=== PATIENT | male | born 1945 | race Caucasian/White ===

== ENCOUNTER 2024-05-04 12:02 | Emergency (ER) | payer MEDICARE, OTHER ==
[~2024-05-04] VITALS: Ht 170.2 cm; Wt 61.2 kg
[2024-05-04 15:01] VITALS: BP 130/69; TEMP 97.9; O2SAT 93
== END 2024-05-04 15:07 | disposition home or self-care (01) ==
LOC: ER 12:12
DX: S42.201A Unspecified fracture of upper end of right humerus, initial encounter for closed fracture (principal); Z59.00 Homelessness unspecified; W01.0XXA Fall on same level from slipping, tripping and stumbling without subsequent striking against object, initial encounter; Y93.89 Activity, other specified; Y92.89 Other specified places as the place of occurrence of the external cause; Y99.8 Other external cause status
CPT/HCPCS: 73030-TC; 73060-TC

== ENCOUNTER 2024-05-06 14:17 | Emergency (ER) | payer OTHER ==
[~2024-05-06] VITALS: Ht 170.2 cm; Wt 61.2 kg
[2024-05-06] MEDS ORDERED: HYDROCODONE/APAP 10/325MG TABLET ONE (14:54)
[2024-05-06] MEDS: HYDROCODONE/APAP 10/325MG TABLET PO ONE (14:57)
[2024-05-06 18:42] VITALS: BP 128/62; TEMP 98.1; O2SAT 97
== END 2024-05-06 18:42 ==
LOC: ER 14:20
DX: S42.201A Unspecified fracture of upper end of right humerus, initial encounter for closed fracture (principal); S50.11XA Contusion of right forearm, initial encounter; R10.2 Pelvic and perineal pain; Z59.00 Homelessness unspecified; Z86.79 Personal history of other diseases of the circulatory system; Z87.39 Personal history of other diseases of the musculoskeletal system and connective tissue; W01.0XXA Fall on same level from slipping, tripping and stumbling without subsequent striking against object, initial encounter; Y93.89 Activity, other specified; Y92.89 Other specified places as the place of occurrence of the external cause; Y99.8 Other external cause status
CPT/HCPCS: 72192-TC

== ENCOUNTER 2024-10-03 18:02 | Inpatient (IN) | payer MEDICARE, OTHER ==
[~2024-10-03] VITALS: Ht 170.2 cm; Wt 46.3 kg
[2024-10-03 18:56] LABS: BASOPHILS % (AUTO) 0.4 % (0.0-2.0); EOSINOPHILS % (AUTO) 0.4 % (0.0-6.0); HEMATOCRIT 27 % (39-51); HEMOGLOBIN 8.9 g/dL (13.5-17.5); LYMPHOCYTES # (AUTO) 1.1 K/uL (0.8-4.8); LYMPHOCYTES % (AUTO) 12.5 % (20.0-44.0); MEAN CORPUSCULAR HEMOGLOBIN 26 PG (26.0-33.0); MEAN CORPUSCULAR HGB CONC 33 g/dl (31.0-36.0); MEAN CORPUSCULAR VOLUME 79 fL (80-96); MONOCYTES # (AUTO) 0.7 K/uL (0.1-1.30); MONOCYTES % (AUTO) 7.8 % (2.0-12.0); NEUTROPHILS % (AUTO) 78.9 % (43.0-81.0); PLATELET COUNT (AUTO) 536 K/uL (150-450); RED BLOOD CELL COUNT(AUTO) 3.42 MIL/uL (4.5-6.0); RED CELL DISTRIBUTION WIDTH 19.3 % (11.5-15.0); WHITE BLOOD COUNT (AUTO) 8.8 K/uL (4.3-11.0)
[2024-10-03 19:01] VITALS: O2SAT 100
[2024-10-03] MEDS: ALBUTEROL FS 2.5 MG/3 ML VIAL.NEB NEB ONE (19:01)
[2024-10-03 19:09] LABS: INR 1.14 (0.91-1.10); PARTIAL THROMBOPLASTIN TIME 28.1 SEC (24.3-34.3); PROTHROMBIN TIME 11.6 SECS (9.2-11.1)
[2024-10-03 19:10] LABS: CALCIUM, SERUM 8.9 mg/dL (8.5-10.1); CARBON DIOXIDE 23 mmol/L (21-32); CHLORIDE 100 mmol/L (98-107); GLUCOSE 94 mg/dL (74-106); POTASSIUM 3.6 mmol/L (3.5-5.1); SODIUM SERUM 134 mmol/L (136-145); UREA NITROGEN, BLOOD 16 mg/dL (7-18)
[2024-10-03] MEDS ORDERED: ALBUTEROL FS 2.5 MG/3 ML VIAL.NEB ONE (19:10)
[2024-10-03 19:16] VITALS: O2SAT 100
[2024-10-03 19:24] LABS: ALANINE AMINOTRANSFERASE 17 U/L (12-78); ALBUMIN 2.7 g/dL (3.4-5.0); ALKALINE PHOSPHATASE 108 U/L (46-116); ASPARTATE AMINOTRANSFERASE 23 U/L (15-37); BILIRUBIN,DIRECT 0.3 mg/dL (0.0-0.2); BILIRUBIN,TOTAL 0.8 mg/dL (0.2-1.0); NT-PRO BNP 1713 pg/mL (0-125); TOTAL PROTEIN, SERUM 8.6 g/dL (6.4-8.2)
[2024-10-03] MEDS ORDERED: FUROSEMIDE 40 MG/4 ML VIAL ONE (20:05)
[2024-10-03] MEDS ORDERED: MORPHINE SULFATE INJ 2 MG/ML DISP.SYRIN ONE (20:06)
[2024-10-03] MEDS ORDERED: IOHEXOL-350 100 ML VIAL IV ONE (20:09)
[2024-10-03] MEDS ORDERED: IV NS 0.9% 250 ML IV ONE (20:09)
[2024-10-03] MEDS: FUROSEMIDE 40 MG/4 ML VIAL IV ONE (20:10)
[2024-10-03] MEDS: MORPHINE SULFATE INJ 2 MG/ML DISP.SYRIN IV ONE (20:11)
[2024-10-03] MEDS ORDERED: ENOXAPARIN SODIUM 40 MG/0.4 ML DISP.SYRIN SQ ONE (20:51)
[2024-10-03] MEDS: ENOXAPARIN SODIUM 40 MG/0.4 ML DISP.SYRIN SQ ONE (20:55)
[2024-10-03] MEDS ORDERED: ENOXAPARIN SODIUM 30 MG/0.3 ML DISP.SYRIN ONE (21:38)
[2024-10-03] MEDS: ENOXAPARIN SODIUM 40 MG/0.4 ML DISP.SYRIN SQ STA (21:43)
[2024-10-03] MEDS ORDERED: ASPIRIN 325 MG TABLET ONE (21:44)
[2024-10-03] MEDS: ASPIRIN 81 MG TAB.CHEW PO SCH (21:46)
[2024-10-03 22:25] VITALS: BP 139/62; TEMP 98.4; O2SAT 98
[2024-10-03] MEDS ORDERED: ONDANSETRON HCL/PF 4 MG/2 ML VIAL IVP PRN (22:30)
[2024-10-03] MEDS ORDERED: Z GUARD REMEDY 4 OZ OINT TP PRN (22:30)
[2024-10-03] MEDS ORDERED: MAGNESIUM HYDROXIDE 30 ML UDC PO PRN (22:30)
[2024-10-04] MEDS: ZOLPIDEM TARTRATE 5 MG TABLET PO PRN (01:13)
[2024-10-04 06:00] VITALS: BP 139/81; TEMP 98.4; O2SAT 98
[2024-10-04 06:54] LABS: BASOPHILS % (AUTO) 0.5 % (0.0-2.0); EOSINOPHILS # (AUTO) 0.1 K/uL (0.0-0.7); EOSINOPHILS % (AUTO) 0.8 % (0.0-6.0); HEMATOCRIT 26 % (39-51); HEMOGLOBIN 8.6 g/dL (13.5-17.5); LYMPHOCYTES % (AUTO) 12.3 % (20.0-44.0); MEAN CORPUSCULAR HEMOGLOBIN 26 PG (26.0-33.0); MEAN CORPUSCULAR HGB CONC 34 g/dl (31.0-36.0); MEAN CORPUSCULAR VOLUME 79 fL (80-96); MONOCYTES # (AUTO) 0.8 K/uL (0.1-1.30); MONOCYTES % (AUTO) 9.3 % (2.0-12.0); NEUTROPHILS # (AUTO) 6.3 K/uL (1.8-8.9); NEUTROPHILS % (AUTO) 77.1 % (43.0-81.0); PLATELET COUNT (AUTO) 526 K/uL (150-450); RED BLOOD CELL COUNT(AUTO) 3.29 MIL/uL (4.5-6.0); RED CELL DISTRIBUTION WIDTH 19.4 % (11.5-15.0); WHITE BLOOD COUNT (AUTO) 8.2 K/uL (4.3-11.0)
[2024-10-04 07:15] LABS: THYROID STIMULATING HORMONE 2.58 uIU/mL (0.358-3.74)
[2024-10-04 07:19] LABS: CALCIUM, SERUM 8.8 mg/dL (8.5-10.1); CREATININE 1.1 mg/dL (0.6-1.3); MAGNESIUM 2.1 mg/dL (1.8-2.4); PHOSPHORUS 4.2 mg/dL (2.5-4.9); POTASSIUM 3.7 mmol/L (3.5-5.1)
[2024-10-04] MEDS: PANTOPRAZOLE 40 MG TABLET.DR PO SCH (07:48)
[2024-10-04 08:28] VITALS: BP 106/78; TEMP 98.1; O2SAT 100
[2024-10-04 08:41] LABS: IRON, SERUM 25 ug/dl (50-175); TOTAL IRON BINDING CAPACITY 210 ug/dl (250-450)
[2024-10-04 08:59] LABS: FERRITIN 189 ng/mL (8-388)
[2024-10-04] MEDS ORDERED: ALBUTEROL HALF STRENGTH 1.25 MG/3 ML VIAL.NEB NEB PRN (11:30)
[2024-10-04 20:00] VITALS: BP 141/67; TEMP 97.2; O2SAT 100
[2024-10-04] MEDS ORDERED: ENOXAPARIN SODIUM 60 MG/0.6 ML DISP.SYRIN SQ SCH (21:00)
[2024-10-04] MEDS: ACETAMINOPHEN 325 MG TABLET PO PRN (21:01)
[2024-10-04] MEDS: ENOXAPARIN SODIUM 30 MG/0.3 ML DISP.SYRIN SQ SCH (22:12)
[2024-10-05 06:52] LABS: BASOPHILS % (AUTO) 0.5 % (0.0-2.0); EOSINOPHILS # (AUTO) 0.1 K/uL (0.0-0.7); EOSINOPHILS % (AUTO) 1.2 % (0.0-6.0); HEMATOCRIT 27 % (39-51); HEMOGLOBIN 8.8 g/dL (13.5-17.5); LYMPHOCYTES # (AUTO) 1.4 K/uL (0.8-4.8); LYMPHOCYTES % (AUTO) 12.9 % (20.0-44.0); MEAN CORPUSCULAR HEMOGLOBIN 26 PG (26.0-33.0); MEAN CORPUSCULAR HGB CONC 33 g/dl (31.0-36.0); MEAN CORPUSCULAR VOLUME 79 fL (80-96); MONOCYTES % (AUTO) 9.2 % (2.0-12.0); NEUTROPHILS # (AUTO) 8.1 K/uL (1.8-8.9); NEUTROPHILS % (AUTO) 76.2 % (43.0-81.0); PLATELET COUNT (AUTO) 529 K/uL (150-450); RED BLOOD CELL COUNT(AUTO) 3.36 MIL/uL (4.5-6.0); RED CELL DISTRIBUTION WIDTH 20.4 % (11.5-15.0); WHITE BLOOD COUNT (AUTO) 10.6 K/uL (4.3-11.0)
[2024-10-05 06:58] LABS: CALCIUM, SERUM 9.3 mg/dL (8.5-10.1); CREATININE 1.1 mg/dL (0.6-1.3); POTASSIUM 3.2 mmol/L (3.5-5.1)
[2024-10-05 07:00] VITALS: BP 105/71; TEMP 97.9; O2SAT 100
[2024-10-05] MEDS: POTASSIUM CHLORIDE 20 MEQ TAB.PRT.SR PO SCH (09:31)
[2024-10-05] MEDS ORDERED: ALBU18HF2 INH (12:00)
[2024-10-05 14:10] LABS: *SPE A/G RATIO 0.6 (0.7-1.7); *SPE ALBUMIN 2.6 g/dL (2.9-4.4); *SPE ALPHA-1-GLOBULIN 0.4 g/dL (0.0-0.4); *SPE ALPHA-2-GLOBULIN 0.9 g/dL (0.4-1.0); *SPE BETA GLOBULIN 1.3 g/dL (0.7-1.3); *SPE GLOBULIN, TOTAL 4.4 g/dL (2.2-3.9); *SPE M-SPIKE Not Observed g/dL (Not Observed); *SPEGAMMA GLOBULIN 1.7 g/dL (0.4-1.8)
[2024-10-05 16:00] VITALS: BP_SYST 105; BP_SYST 162; BP_DIAS 71; BP_DIAS 92; TEMP 97.3; TEMP 98.2; O2SAT 100
[2024-10-05] MEDS: MAG HYDROX/AL HYDROX/SIMETH 30 ML UDC PO PRN (16:08)
[2024-10-05 20:00] VITALS: BP 119/88; TEMP 97.7; O2SAT 98
[2024-10-06 06:46] LABS: CALCIUM, SERUM 8.6 mg/dL (8.5-10.1); CREATININE 0.9 mg/dL (0.6-1.3); POTASSIUM 3.9 mmol/L (3.5-5.1)
[2024-10-06 08:31] VITALS: BP 120/78; TEMP 97.6; O2SAT 100
[2024-10-06] MEDS ORDERED: MUPIROCIN OINT 2% 22 GM TUBE NS SCH (21:00)
== END 2024-10-06 17:26 | DRG 202 ==
LOC: ER 18:04 → TELE 20:48 → MED 10-04 21:16
PROVIDERS: ADMIT Student in an Organized Health Care Education/Training Program; ATTEND Student in an Organized Health Care Education/Training Program
DX: J20.8 Acute bronchitis due to other specified organisms (principal); E44.0 Moderate protein-calorie malnutrition; J44.0 Chronic obstructive pulmonary disease with (acute) lower respiratory infection; L97.821 Non-pressure chronic ulcer of other part of left lower leg limited to breakdown of skin; S21.102A Unspecified open wound of left front wall of thorax without penetration into thoracic cavity, initial encounter; I25.2 Old myocardial infarction; Z87.891 Personal history of nicotine dependence; D64.9 Anemia, unspecified; I25.10 Atherosclerotic heart disease of native coronary artery without angina pectoris; Z99.81 Dependence on supplemental oxygen; Z87.820 Personal history of traumatic brain injury; S61.402A Unspecified open wound of left hand, initial encounter; X58.XXXA Exposure to other specified factors, initial encounter; Y92.89 Other specified places as the place of occurrence of the external cause; R79.1 Abnormal coagulation profile; Z98.890 Other specified postprocedural states; Z87.828 Personal history of other (healed) physical injury and trauma; R06.00 Dyspnea, unspecified
CPT/HCPCS: 36415; 71045-TC; 80048-TC; 80061-TC; 80076-TC; 82728-TC; 83540-TC; 83735-TC; 83880; 84100-TC; 84155; 84165; 84443-TC; 84484-TC; 85025-TC; 85378-TC; 85730-TC; 87081-TC; 93307-TC; 97110-TC; 97116-TC; 97530-TC; 97535-TC; A6253; A6403; G0378; J1650; J1938; J2270; J7050; Q9967

== ENCOUNTER 2024-10-29 10:46 | Inpatient (IN) | payer MEDICARE, OTHER ==
[~2024-10-29] VITALS: Ht 170.2 cm; Wt 56.2 kg
[2024-10-29] MEDS: IV NS 0.9% 1,000 ML BAG IV ONE ×2 (11:10→13:40)
[2024-10-29 11:18] LABS: PLATELET COUNT (AUTO) 355 K/uL (150-450); RED BLOOD CELL COUNT(AUTO) 2.71 MIL/uL (4.5-6.0); RED CELL DISTRIBUTION WIDTH 20.0 % (11.5-15.0); WHITE BLOOD COUNT (AUTO) 15.3 K/uL (4.3-11.0)
[2024-10-29 11:25] LABS: CALCIUM, SERUM 8.5 mg/dL (8.5-10.1); CREATININE 0.8 mg/dL (0.6-1.3); SODIUM SERUM 128.0 mmol/L (136-145); UREA NITROGEN, BLOOD 26.0 mg/dL (7-18)
[2024-10-29] MEDS ORDERED: MAGN400O6 PO (11:26)
[2024-10-29] MEDS ORDERED: MULT-213 PO (11:26)
[2024-10-29] MEDS ORDERED: MELA1TAB47 PO (11:26)
[2024-10-29] MEDS ORDERED: NA P133E RC (11:26)
[2024-10-29] MEDS ORDERED: HYDR-4209 PO (11:26)
[2024-10-29] MEDS ORDERED: CRAN500T3 PO (11:26)
[2024-10-29] MEDS ORDERED: MAG30ORA PO (11:26)
[2024-10-29] MEDS ORDERED: ACET-868 PO (11:26)
[2024-10-29] MEDS ORDERED: LOPE2TAB25 PO (11:26)
[2024-10-29] MEDS ORDERED: BISA10SU11 RC (11:26)
[2024-10-29] MEDS ORDERED: PANT40TA2 PO (11:26)
[2024-10-29] MEDS ORDERED: ZOLP5TAB2 PO (11:26)
[2024-10-29] MEDS ORDERED: ALBU1.257 IH (11:26)
[2024-10-29] MEDS ORDERED: IOHEXOL-300 100 ML VIAL IV ONE (11:30)
[2024-10-29 11:31] LABS: ASPARTATE AMINOTRANSFERASE 70.0 U/L (15-37); INR 1.4 (0.91-1.10); TOTAL PROTEIN, SERUM 6.9 g/dL (6.4-8.2)
[2024-10-29 11:38] LABS: LACTIC ACID 1.2 mmol/L (0.4-2.0)
[2024-10-29 11:55] LABS: SERUM AMMONIA 13.0 umol/L (11-32)
[2024-10-29] MEDS ORDERED: PIPERACI/TAZO 3.375GM/D5W 50ML PB IV ONE ×2 (11:56→11:58)
[2024-10-29] MEDS: PIPERACILLIN /TAZOBACTAM 3.375 G in IV D5W 50 ML IV ONE (12:00)
[2024-10-29 12:09] LABS: LYMPHOCYTES % (MANUAL) 6 % (16-48); MONOCYTES % (MANUAL) 3 % (0-11.0); NEUTROPHILS % (MANUAL) 91 (42-76); PLATELET ESTIMATE ADEQUATE
[2024-10-29] MEDS ORDERED: ACETAMINOPHEN 325 MG TABLET ONE ×2 (14:24→14:28)
[2024-10-29] MEDS ORDERED: DOSING PER PHARMACY-ZOSYN IV 1 EA EA XX PRN (14:30)
[2024-10-29] MEDS ORDERED: Z GUARD REMEDY 4 OZ OINT TP PRN (14:30)
[2024-10-29] MEDS: ACETAMINOPHEN 325 MG TABLET PO PRN (14:59)
[2024-10-29 15:20] LABS: APPEARANCE,URINE CLEAR (CLEAR); BLOOD, URINE NEGATIVE Ery/uL (NEGATIVE); LEUKOCYTE ESTERASE ,URINE NEGATIVE (NEGATIVE); NITRITE, URINE NEGATIVE (NEGATIVE); UGLUCOSE TRACE mg/dL (NEGATIVE)
[2024-10-29 15:32] LABS: ADD URINE CULTURE NO; SQUAMOUS EPITHELIAL CELL,UR 0-2 /HPF (None Seen)
[2024-10-29 15:34] LABS: HYALINE CASTS, URINE Rare /LPF (None Seen)
[2024-10-29 16:00] VITALS: BP 92/54; TEMP 97.6; O2SAT 99
[2024-10-29 16:47] VITALS: BP 92/54; TEMP 97.6; O2SAT 97
[2024-10-29] MEDS: IV NS 0.9% 1,000 ML IV PRN (17:42)
[2024-10-29] MEDS: ZOSYN IVPB 3.375 G in IV D5W 50ml IV SCH (18:24)
[2024-10-29 20:00] VITALS: BP 111/87; TEMP 97.7; O2SAT 96
[2024-10-29] MEDS: MAG HYDROX/AL HYDROX/SIMETH 30 ML UDC PO PRN (22:13)
[2024-10-30] VITALS (7 sets, daily range): BP systolic 92–112; BP diastolic 54–66; TEMP 97.7–98.6; O2SAT 96–100
[2024-10-30 07:40] LABS: CALCIUM, SERUM 8.6 mg/dL (8.5-10.1); CREATININE 0.7 mg/dL (0.6-1.3); PHOSPHORUS 3.7 mg/dL (2.5-4.9); SODIUM SERUM 134.0 mmol/L (136-145); UREA NITROGEN, BLOOD 20.0 mg/dL (7-18)
[2024-10-30 09:20] LABS: PLATELET COUNT (AUTO) 364 K/uL (150-450); RED BLOOD CELL COUNT(AUTO) 2.62 MIL/uL (4.5-6.0); RED CELL DISTRIBUTION WIDTH 19.9 % (11.5-15.0); WHITE BLOOD COUNT (AUTO) 17.6 K/uL (4.3-11.0)
[2024-10-30 12:25] LABS: IRON, SERUM 2 ug/dl (50-175)
[2024-10-30 14:47] LABS: LYMPHOCYTES % (MANUAL) 1 % (16-48); MONOCYTES % (MANUAL) 5 % (0-11.0); NEUTROPHILS % (MANUAL) 94 (42-76); PLATELET ESTIMATE ADEQUATE
[2024-10-30] MEDS: PIPERACILLIN /TAZOBACTAM 3.375 G in IV D5W 100 ML IV SCH (16:12)
[2024-10-30] MEDS: ENSURE ENLIVE 237 ML LIQUID (VANILLA) PO SCH (19:00)
[2024-10-31 04:00] VITALS: BP 100/67; TEMP 98.2; O2SAT 100
[2024-10-31 06:36] LABS: INR 1.35 (0.91-1.10)
[2024-10-31 06:38] LABS: PLATELET COUNT (AUTO) 343 K/uL (150-450); RED BLOOD CELL COUNT(AUTO) 3.08 MIL/uL (4.5-6.0); RED CELL DISTRIBUTION WIDTH 18.5 % (11.5-15.0); WHITE BLOOD COUNT (AUTO) 17.8 K/uL (4.3-11.0)
[2024-10-31 07:19] LABS: CALCIUM, SERUM 8.5 mg/dL (8.5-10.1); CREATININE 0.6 mg/dL (0.6-1.3); SODIUM SERUM 133.0 mmol/L (136-145); UREA NITROGEN, BLOOD 17.0 mg/dL (7-18)
[2024-10-31 08:00] VITALS: BP 115/63; TEMP 98.1; O2SAT 99
[2024-10-31 11:23] VITALS: BP 135/68; TEMP 98; O2SAT 95
[2024-10-31] MEDS: POTASSIUM CL. PREMIX PERIPHER. 50 ML IV SCH (11:25)
[2024-10-31] MEDS: MORPHINE SULFATE INJ 2 MG/ML DISP.SYRIN IV PRN (11:25)
[2024-10-31] MEDS ORDERED: NALOXONE PREFILLED SYRINGE 2 MG/2 ML SYRINGE IV PRN (12:00)
[2024-10-31] MEDS ORDERED: FLUMAZENIL 0.5 MG VIAL IV PRN (12:00)
[2024-10-31] MEDS ORDERED: FENTANYL PF 250MCG/5ML AMPUL IV PRN (12:00)
[2024-10-31] MEDS ORDERED: MIDAZOLAM HCL 2 MG/2ML VIAL IV PRN (12:00)
[2024-10-31 16:00] VITALS: BP 119/65; TEMP 97.9; O2SAT 89
[2024-10-31] MEDS: SOD FERRIC GLUC 125 MG in IV NS 0.9% 100 ML IV SCH (16:07)
[2024-10-31 17:11] VITALS: BP 110/65; O2SAT 96
[2024-10-31 20:00] VITALS: BP 116/70; TEMP 99; O2SAT 97
[2024-10-31] MEDS: MUPIROCIN OINT 2% 22 GM TUBE NS SCH (21:30)
[2024-11-01 04:00] VITALS: BP 99/54; TEMP 98.8; O2SAT 98
[2024-11-01 04:07] LABS: IMMUNOGLOBULIN A, SERUM 851 mg/dL (61-437); IMMUNOGLOBULIN M, SERUM 125 mg/dL (15-143)
[2024-11-01 07:04] LABS: PLATELET COUNT (AUTO) 318 K/uL (150-450); RED BLOOD CELL COUNT(AUTO) 2.88 MIL/uL (4.5-6.0); RED CELL DISTRIBUTION WIDTH 18.2 % (11.5-15.0); WHITE BLOOD COUNT (AUTO) 12.6 K/uL (4.3-11.0)
[2024-11-01 07:07] LABS: AFP, TUMOR MARKER <1.8 ng/mL (0.0-8.4); CARBOHYDRATE AG 19-9 2767 U/mL (0-35); CARCINOEMBRYONIC ANTIGEN (CEA) 108.0 ng/mL (0.0-4.7); FOLIC ACID 2.8 ng/mL (>3.0)
[2024-11-01 07:47] LABS: CALCIUM, SERUM 8.3 mg/dL (8.5-10.1); CREATININE 0.6 mg/dL (0.6-1.3); SODIUM SERUM 135.0 mmol/L (136-145); UREA NITROGEN, BLOOD 16.0 mg/dL (7-18)
[2024-11-01 08:00] VITALS: BP 98/60; TEMP 98.1; O2SAT 98
[2024-11-01] MEDS ORDERED: IV NS 0.9% 250 ML IV ONE (09:29)
[2024-11-01] MEDS ORDERED: CT SWABBABLE VALVE TRANS SET 1 EA INFUS.SET MC ONE (09:29)
[2024-11-01] MEDS ORDERED: IOHEXOL-300 100 ML VIAL IV ONE (09:29)
[2024-11-01 16:00] VITALS: BP 101/65; TEMP 98; O2SAT 99
[2024-11-01] MEDS: POTASSIUM CHLORIDE 20 MEQ TAB.PRT.SR PO ONE (18:42)
[2024-11-01 20:00] VITALS: BP 113/70; TEMP 98.2; O2SAT 96
[2024-11-02 04:00] VITALS: BP 101/56; TEMP 98.4; O2SAT 98
[2024-11-02 06:40] LABS: PLATELET COUNT (AUTO) 322 K/uL (150-450); RED BLOOD CELL COUNT(AUTO) 2.87 MIL/uL (4.5-6.0); RED CELL DISTRIBUTION WIDTH 17.8 % (11.5-15.0); WHITE BLOOD COUNT (AUTO) 14.7 K/uL (4.3-11.0)
[2024-11-02 06:47] LABS: CALCIUM, SERUM 8.1 mg/dL (8.5-10.1)
[2024-11-02 06:52] LABS: CREATININE 0.6 mg/dL (0.6-1.3); SODIUM SERUM 137.0 mmol/L (136-145); UREA NITROGEN, BLOOD 12.0 mg/dL (7-18)
[2024-11-02 06:53] LABS: ASPARTATE AMINOTRANSFERASE 50.0 U/L (15-37); TOTAL PROTEIN, SERUM 6.3 g/dL (6.4-8.2)
[2024-11-02 07:10] LABS: *SPE A/G RATIO 0.5 (0.7-1.7); *SPE ALBUMIN 1.8 g/dL (2.9-4.4); *SPE ALPHA-1-GLOBULIN 0.4 g/dL (0.0-0.4); *SPE ALPHA-2-GLOBULIN 0.9 g/dL (0.4-1.0); *SPE BETA GLOBULIN 1.0 g/dL (0.7-1.3); *SPE GLOBULIN, TOTAL 3.6 g/dL (2.2-3.9); *SPE M-SPIKE 0.2 g/dL (Not Observed); *SPE PROTEIN TOTAL 5.4 g/dL (6.0-8.5); *SPEGAMMA GLOBULIN 1.4 g/dL (0.4-1.8)
[2024-11-02 08:00] VITALS: BP 97/60; TEMP 100.8; O2SAT 96
[2024-11-02] MEDS: ENSURE CLEAR 237 ML LIQUID (MIX BERRY) PO SCH (08:30)
[2024-11-02] MEDS: ENSURE ENLIVE 237 ML LIQUID (VANILLA) PO SCH (08:38)
[2024-11-02] MEDS: MAGNESIUM HYDROXIDE 30 ML UDC PO PRN (10:15)
[2024-11-02 12:51] VITALS: BP 98/65; TEMP 98; O2SAT 99
[2024-11-02 16:00] VITALS: BP 108/66; TEMP 97.9; O2SAT 99
[2024-11-02] MEDS: FERROUS SULFATE (325 MG) 325 MG/TAB TABLET PO SCH (17:44)
[2024-11-02 20:00] VITALS: BP 123/61; TEMP 97.8; O2SAT 96
[2024-11-03 04:00] VITALS: BP 115/71; TEMP 99.1; O2SAT 97
[2024-11-03 08:00] VITALS: BP 102/60; TEMP 99; O2SAT 96
[2024-11-03 08:10] LABS: PLATELET COUNT (AUTO) 353 K/uL (150-450); RED BLOOD CELL COUNT(AUTO) 2.86 MIL/uL (4.5-6.0); RED CELL DISTRIBUTION WIDTH 17.9 % (11.5-15.0); WHITE BLOOD COUNT (AUTO) 19.2 K/uL (4.3-11.0)
[2024-11-03] MEDS: DEXTROSE 50%-WATER 50 ML DISP.SYRIN IVP ONE ×2 (08:29→08:31)
[2024-11-03 08:56] LABS: ASPARTATE AMINOTRANSFERASE 56.0 U/L (15-37); CALCIUM, SERUM 8.0 mg/dL (8.5-10.1); CREATININE 0.7 mg/dL (0.6-1.3); SODIUM SERUM 137.0 mmol/L (136-145); TOTAL PROTEIN, SERUM 6.4 g/dL (6.4-8.2); UREA NITROGEN, BLOOD 12.0 mg/dL (7-18)
[2024-11-03] MEDS: POTASSIUM CHLORIDE 20 MEQ TAB.PRT.SR PO SCH (09:30)
[2024-11-03] MEDS: IV D5/ 0.9% NACL 1,000 ML IV SCH (10:05)
[2024-11-03] MEDS: POTASSIUM CL. PREMIX PERIPHER. 50 ML IV SCH (11:47)
[2024-11-03 13:02] VITALS: BP 96/60; TEMP 98; O2SAT 99
[2024-11-03] MEDS ORDERED: FENTANYL PF 250MCG/5ML AMPUL IV PRN (13:30)
[2024-11-03] MEDS ORDERED: FLUMAZENIL 0.5 MG VIAL IV PRN (13:30)
[2024-11-03] MEDS ORDERED: NALOXONE PREFILLED SYRINGE 2 MG/2 ML SYRINGE IV PRN (13:30)
[2024-11-03] MEDS ORDERED: MIDAZOLAM HCL 2 MG/2ML VIAL IV PRN (13:30)
[2024-11-03 13:38] LABS: INR 1.69 (0.91-1.10)
[2024-11-03] MEDS ORDERED: FENTANYL PF 250MCG/5ML AMPUL IV ONE (14:53)
[2024-11-03 16:00] VITALS: BP 109/70; TEMP 97.9; O2SAT 100
[2024-11-03 20:00] VITALS: BP 112/70; TEMP 99; O2SAT 94
[2024-11-03 21:09] LABS: BAND % (MANUAL) 1 % (0.0-5.0); LYMPHOCYTES % (MANUAL) 2 % (16-48); MONOCYTES % (MANUAL) 2 % (0-11.0); NEUTROPHILS % (MANUAL) 95 (42-76)
[2024-11-03 21:10] LABS: PLATELET ESTIMATE ADEQUATE
[2024-11-03] MEDS: ONDANSETRON HCL/PF 4 MG/2 ML VIAL IVP PRN (22:17)
[2024-11-04] VITALS (8 sets, daily range): BP systolic 100–123; BP diastolic 60–86; TEMP 97.1–98.8; O2SAT 96–99
[2024-11-04 08:17] LABS: CALCIUM, SERUM 8.3 mg/dL (8.5-10.1); CREATININE 0.7 mg/dL (0.6-1.3); PHOSPHORUS 2.9 mg/dL (2.5-4.9); SODIUM SERUM 135.0 mmol/L (136-145); UREA NITROGEN, BLOOD 14.0 mg/dL (7-18)
[2024-11-04 08:21] LABS: PLATELET COUNT (AUTO) 309 K/uL (150-450); RED BLOOD CELL COUNT(AUTO) 2.46 MIL/uL (4.5-6.0); RED CELL DISTRIBUTION WIDTH 17.8 % (11.5-15.0); WHITE BLOOD COUNT (AUTO) 17.2 K/uL (4.3-11.0)
[2024-11-04 13:25] LABS: LYMPHOCYTES % (MANUAL) 6 % (16-48); MONOCYTES % (MANUAL) 4 % (0-11.0); NEUTROPHILS % (MANUAL) 90 (42-76); PLATELET ESTIMATE ADEQUATE
[2024-11-04] MEDS: TRAMADOL HCL 50 MG TABLET PO PRN (16:00)
[2024-11-05 04:00] VITALS: BP 101/61; TEMP 97.9; O2SAT 96
[2024-11-05 08:00] VITALS: BP 90/64; TEMP 97.7; O2SAT 99
[2024-11-05 09:11] LABS: PLATELET COUNT (AUTO) 297 K/uL (150-450); RED BLOOD CELL COUNT(AUTO) 2.89 MIL/uL (4.5-6.0); RED CELL DISTRIBUTION WIDTH 17.3 % (11.5-15.0); WHITE BLOOD COUNT (AUTO) 16.6 K/uL (4.3-11.0)
[2024-11-05 09:12] LABS: CALCIUM, SERUM 8.3 mg/dL (8.5-10.1); CREATININE 0.7 mg/dL (0.6-1.3); SODIUM SERUM 139.0 mmol/L (136-145); UREA NITROGEN, BLOOD 16.0 mg/dL (7-18)
[2024-11-05 09:18] LABS: ASPARTATE AMINOTRANSFERASE 44.0 U/L (15-37); TOTAL PROTEIN, SERUM 6.4 g/dL (6.4-8.2)
[2024-11-05] MEDS: LIDOCAINE 5% (PATCH) 1 EA PATCH TP SCH (12:53)
[2024-11-05] MEDS: MENTHOL/CETYLPYRD (CEPACOL) 1 LOZ LOZENGE PO PRN (13:16)
[2024-11-05 14:07] LABS: LYMPHOCYTES % (MANUAL) 3 % (16-48); MONOCYTES % (MANUAL) 2 % (0-11.0); NEUTROPHILS % (MANUAL) 95 (42-76); PLATELET ESTIMATE ADEQUATE
[2024-11-05 16:00] VITALS: BP 99/60; TEMP 98; O2SAT 96
[2024-11-05 20:00] VITALS: BP 104/68; TEMP 97.9; O2SAT 97
[2024-11-06 04:00] VITALS: BP 106/71; TEMP 98.1; O2SAT 98
[2024-11-06 07:06] LABS: PLATELET COUNT (AUTO) 338 K/uL (150-450); RED BLOOD CELL COUNT(AUTO) 2.99 MIL/uL (4.5-6.0); RED CELL DISTRIBUTION WIDTH 17.6 % (11.5-15.0); WHITE BLOOD COUNT (AUTO) 18.5 K/uL (4.3-11.0)
[2024-11-06 07:27] LABS: CALCIUM, SERUM 8.3 mg/dL (8.5-10.1); CREATININE 0.6 mg/dL (0.6-1.3); SODIUM SERUM 141.0 mmol/L (136-145); UREA NITROGEN, BLOOD 13.0 mg/dL (7-18)
[2024-11-06 08:00] VITALS: BP 99/67; TEMP 98.1; O2SAT 97
[2024-11-06] MEDS: POTASSIUM CL. PREMIX PERIPHER. 50 ML IV SCH (10:06)
[2024-11-06 16:00] VITALS: BP 108/73; TEMP 98.1; O2SAT 99
[2024-11-06 20:00] VITALS: BP 107/69; TEMP 99.3; O2SAT 98
[2024-11-07] VITALS (10 sets, daily range): BP systolic 93–119; BP diastolic 55–73; TEMP 97.2–99.2; O2SAT 97–99
[2024-11-07 06:43] LABS: PLATELET COUNT (AUTO) 351 K/uL (150-450); RED BLOOD CELL COUNT(AUTO) 2.84 MIL/uL (4.5-6.0); RED CELL DISTRIBUTION WIDTH 17.6 % (11.5-15.0); WHITE BLOOD COUNT (AUTO) 15.6 K/uL (4.3-11.0)
[2024-11-07 07:38] LABS: ASPARTATE AMINOTRANSFERASE 36.0 U/L (15-37); CALCIUM, SERUM 8.2 mg/dL (8.5-10.1); CREATININE 0.6 mg/dL (0.6-1.3); PHOSPHORUS 3.2 mg/dL (2.5-4.9); SODIUM SERUM 141.0 mmol/L (136-145); TOTAL PROTEIN, SERUM 6.9 g/dL (6.4-8.2); UREA NITROGEN, BLOOD 17.0 mg/dL (7-18)
[2024-11-07] MEDS ORDERED: ANESTHESIA TRAY IN PYXIS 1 EA TRAY MC ONE (08:47)
[2024-11-07] MEDS ORDERED: IOHEXOL 0 ML IV ONE (10:00)
[2024-11-07] MEDS ORDERED: INDOMETHACIN 100 MG SUPP.RECT ONE (10:00)
[2024-11-07] MEDS ORDERED: IOHEXOL 50 ML IV ONE (10:01)
[2024-11-07] MEDS: POTASSIUM CL. PREMIX PERIPHER. 50 ML IV SCH (10:31)
[2024-11-07] MEDS ORDERED: ROCURONIUM BROMIDE 50 MG/5 ML ONE (12:27)
[2024-11-07 16:52] LABS: PLATELET COUNT (AUTO) 339 K/uL (150-450); RED BLOOD CELL COUNT(AUTO) 2.71 MIL/uL (4.5-6.0); RED CELL DISTRIBUTION WIDTH 17.6 % (11.5-15.0); WHITE BLOOD COUNT (AUTO) 15.3 K/uL (4.3-11.0)
[2024-11-07] MEDS: METOCLOPRAMIDE HCL 10 MG/2 ML VIAL IV SCH (17:55)
[2024-11-07] MEDS: IV D5/ 0.9% NACL 1,000 ML IV PRN (23:47)
[2024-11-08] VITALS: BP 103/71; TEMP 97.3; O2SAT 100
[2024-11-08 04:00] VITALS: BP 109/69; TEMP 97.5; O2SAT 98
[2024-11-08 06:53] LABS: OCCULT BLOOD STOOL POSITIVE (NEGATIVE)
[2024-11-08 07:03] LABS: CALCIUM, SERUM 8.0 mg/dL (8.5-10.1); CREATININE 0.7 mg/dL (0.6-1.3); SODIUM SERUM 145.0 mmol/L (136-145); UREA NITROGEN, BLOOD 17.0 mg/dL (7-18)
[2024-11-08 07:17] LABS: PLATELET COUNT (AUTO) 300 K/uL (150-450); RED BLOOD CELL COUNT(AUTO) 2.92 MIL/uL (4.5-6.0); RED CELL DISTRIBUTION WIDTH 16.8 % (11.5-15.0); WHITE BLOOD COUNT (AUTO) 11.3 K/uL (4.3-11.0)
[2024-11-08 08:00] VITALS: BP 102/65; TEMP 98.4; O2SAT 100
[2024-11-08] MEDS: POTASSIUM CHLORIDE 20 MEQ TAB.PRT.SR PO SCH (10:11)
[2024-11-08 12:00] VITALS: BP 110/65; TEMP 98.6; O2SAT 100
[2024-11-08 16:00] VITALS: BP 115/65; TEMP 98.7; O2SAT 100
[2024-11-08 20:00] VITALS: BP 102/43; TEMP 98.4; O2SAT 99
[2024-11-09] VITALS: BP 113/71; TEMP 98.1; O2SAT 100
[2024-11-09 04:00] VITALS: BP 120/75; TEMP 98.5; O2SAT 99
[2024-11-09 07:09] LABS: *ALBUMIN U 24 16.0 % (.); *ALPHA-1-GLOBULIN,U 24HR 2.8 % (.); *ALPHA-2-GLOBULIN,U 24HR 13.6 % (.); *BETA GLOBULIN,U 24HR 40.3 % (.); *GAMMA GLOBULIN,U 24HR 27.2 % (.); *M-SPIKE, % UR 24HR 0.0 % (Not Observed); *M-SPIKE,MG/24HR 0.0 mg/24 hr (Not Observed); *PROTEIN,24HR CALCULATED 572 mg/24 hr (30-150); *PROTEIN,TOTAL, URINE 24HR 143.1 mg/dL (Not Estab.)
[2024-11-09 07:35] LABS: ASPARTATE AMINOTRANSFERASE 46 U/L (15-37); CALCIUM, SERUM 7.7 mg/dL (8.5-10.1); CREATININE 0.5 mg/dL (0.6-1.3); SODIUM SERUM 140 mmol/L (136-145); TOTAL PROTEIN, SERUM 6.4 g/dL (6.4-8.2); UREA NITROGEN, BLOOD 14 mg/dL (7-18)
[2024-11-09 07:36] LABS: PLATELET COUNT (AUTO) 293 K/uL (150-450); RED BLOOD CELL COUNT(AUTO) 2.98 MIL/uL (4.5-6.0); RED CELL DISTRIBUTION WIDTH 18.4 % (11.5-15.0); WHITE BLOOD COUNT (AUTO) 11.4 K/uL (4.3-11.0)
[2024-11-09 08:00] VITALS: BP 118/74; TEMP 97.5; O2SAT 100
[2024-11-09 12:00] VITALS: BP 121/81; TEMP 98.1; O2SAT 99
[2024-11-09] MEDS: DEXTROSE 50%-WATER 50 ML DISP.SYRIN IVP ONE (12:08)
[2024-11-09] MEDS: POTASSIUM CHLORIDE 20 MEQ POWDER PACKET PO ONE (15:52)
[2024-11-09 16:00] VITALS: BP 113/97; TEMP 97.5; O2SAT 99
[2024-11-09 20:00] VITALS: BP 114/75; TEMP 98.4; O2SAT 95
[2024-11-10] VITALS (7 sets, daily range): BP systolic 96–134; BP diastolic 52–79; TEMP 97.5–99.7; O2SAT 95–100
[2024-11-10 06:36] LABS: PLATELET COUNT (AUTO) 371 K/uL (150-450); RED BLOOD CELL COUNT(AUTO) 2.72 MIL/uL (4.5-6.0); RED CELL DISTRIBUTION WIDTH 17.2 % (11.5-15.0); WHITE BLOOD COUNT (AUTO) 14.4 K/uL (4.3-11.0)
[2024-11-10 07:18] LABS: ASPARTATE AMINOTRANSFERASE 53.0 U/L (15-37); CALCIUM, SERUM 7.7 mg/dL (8.5-10.1); CREATININE 0.5 mg/dL (0.6-1.3); PHOSPHORUS 3.3 mg/dL (2.5-4.9); TOTAL PROTEIN, SERUM 6.6 g/dL (6.4-8.2); UREA NITROGEN, BLOOD 10.0 mg/dL (7-18)
[2024-11-10 07:36] LABS: SODIUM SERUM 141.0 mmol/L (136-145)
[2024-11-10] MEDS: POTASSIUM CL. PREMIX PERIPHER. 50 ML IV SCH (10:36)
[2024-11-10] MEDS ORDERED: DOSING PER PHARMACY-VANCOMYCIN IV XX PRN (22:00)
[2024-11-10] MEDS ORDERED: LEVOFLOXACIN 500 MG /D5W 100ML 100 ML IV ONE (22:11)
[2024-11-10] MEDS: LEVOFLOXACIN 500 MG /D5W 100ML 500 MG in PREMIX 1 EA IV SCH (22:17)
[2024-11-10] MEDS: VANCOMYCIN 1 GM in IV D5W 250ml IV ONE (22:50)
[2024-11-11] VITALS: BP 116/64; TEMP 98.2; O2SAT 99
[2024-11-11 04:00] VITALS: BP 122/76; TEMP 97.9; O2SAT 98
[2024-11-11] MEDS ORDERED: METRONIDAZOLE 500MG/ NS 100ML 100 ML IV ONE (04:21)
[2024-11-11] MEDS: METRONIDAZOLE 500MG/ NS 100ML 500 MG in PREMIX 1 EA IV SCH (04:25)
[2024-11-11 07:28] LABS: PLATELET COUNT (AUTO) 377 K/uL (150-450); RED BLOOD CELL COUNT(AUTO) 3.03 MIL/uL (4.5-6.0); RED CELL DISTRIBUTION WIDTH 17.8 % (11.5-15.0); WHITE BLOOD COUNT (AUTO) 11.8 K/uL (4.3-11.0)
[2024-11-11 08:00] VITALS: BP 123/80; TEMP 97.3; O2SAT 99
[2024-11-11 08:11] LABS: ASPARTATE AMINOTRANSFERASE 53 U/L (15-37); CALCIUM, SERUM 7.8 mg/dL (8.5-10.1); CREATININE 0.4 mg/dL (0.6-1.3); SODIUM SERUM 135 mmol/L (136-145); TOTAL PROTEIN, SERUM 6.6 g/dL (6.4-8.2); UREA NITROGEN, BLOOD 7 mg/dL (7-18)
[2024-11-11] MEDS: VANCOMYCIN 750 MG in IV D5W 250 ML IV SCH (08:20)
[2024-11-11 12:00] VITALS: BP 120/74; TEMP 97.5; O2SAT 97
[2024-11-11 16:00] VITALS: BP 111/69; TEMP 97.7; O2SAT 97
[2024-11-11 20:00] VITALS: BP 125/70; TEMP 97.7; O2SAT 98
[2024-11-12] VITALS: BP 130/70; TEMP 98; O2SAT 98
[2024-11-12 04:00] VITALS: BP 120/70; TEMP 97.9; O2SAT 99
[2024-11-12 06:26] LABS: PLATELET COUNT (AUTO) 389 K/uL (150-450); RED BLOOD CELL COUNT(AUTO) 3.06 MIL/uL (4.5-6.0); RED CELL DISTRIBUTION WIDTH 17.5 % (11.5-15.0); WHITE BLOOD COUNT (AUTO) 12.8 K/uL (4.3-11.0)
[2024-11-12 06:52] LABS: ASPARTATE AMINOTRANSFERASE 37 U/L (15-37); CALCIUM, SERUM 7.6 mg/dL (8.5-10.1); CREATININE 0.5 mg/dL (0.6-1.3); PHOSPHORUS 2.7 mg/dL (2.5-4.9); SODIUM SERUM 134 mmol/L (136-145); TOTAL PROTEIN, SERUM 6.5 g/dL (6.4-8.2); UREA NITROGEN, BLOOD 6 mg/dL (7-18)
[2024-11-12 08:00] VITALS: BP 122/76; TEMP 98.2; O2SAT 99
[2024-11-12] MEDS: POTASSIUM CL. PREMIX PERIPHER. 50 ML IV SCH (11:16)
[2024-11-12 12:00] VITALS: BP 112/74; TEMP 98.2; O2SAT 99
[2024-11-12 16:00] VITALS: BP 104/83; TEMP 98.1; O2SAT 99
[2024-11-12 20:00] VITALS: BP 134/47; TEMP 98.8; O2SAT 93
[2024-11-13] VITALS: BP 141/49; TEMP 98.6; O2SAT 100
[2024-11-13 04:00] VITALS: BP 140/85; TEMP 98.4; O2SAT 97
[2024-11-13 08:00] VITALS: BP 112/91; TEMP 98.4; O2SAT 97
[2024-11-13 08:52] LABS: PLATELET COUNT (AUTO) 467 K/uL (150-450); RED BLOOD CELL COUNT(AUTO) 2.97 MIL/uL (4.5-6.0); RED CELL DISTRIBUTION WIDTH 18.0 % (11.5-15.0); WHITE BLOOD COUNT (AUTO) 14.7 K/uL (4.3-11.0)
[2024-11-13 11:51] LABS: CALCIUM, SERUM 7.9 mg/dL (8.5-10.1); CREATININE 0.6 mg/dL (0.6-1.3); PHOSPHORUS 2.8 mg/dL (2.5-4.9); SODIUM SERUM 131.0 mmol/L (136-145); UREA NITROGEN, BLOOD 5.0 mg/dL (7-18)
[2024-11-13 12:00] VITALS: BP 122/99; TEMP 97.6; O2SAT 97
[2024-11-13] MEDS: POTASSIUM CL. PREMIX PERIPHER. 50 ML IV SCH (12:16)
[2024-11-13 12:20] LABS: ASPARTATE AMINOTRANSFERASE 33.0 U/L (15-37); TOTAL PROTEIN, SERUM 6.7 g/dL (6.4-8.2)
[2024-11-13] MEDS ORDERED: SODIUM CHLORIDE 1000 MG TABLET PO SCH (12:30)
[2024-11-13] MEDS: SODIUM CHLORIDE 1000 MG TABLET PO SCH (13:07)
[2024-11-13] MEDS: VANCOMYCIN 1 GM /D5W 250 ML PB IV ONE (13:20)
[2024-11-13] MEDS: VANCOMYCIN 750 MG in IV D5W 250 ML IV SCH (13:51)
[2024-11-13] MEDS: FOLIC ACID 1 MG TABLET PO SCH (15:39)
[2024-11-13 16:00] VITALS: BP 118/70; TEMP 97.5; O2SAT 97
[2024-11-13 16:40] LABS: IRON, SERUM 23.0 ug/dl (50-175)
[2024-11-13 20:00] VITALS: BP 112/78; TEMP 98.4; O2SAT 96
[2024-11-14] VITALS: BP 122/67; TEMP 98.2; O2SAT 98
[2024-11-14 04:00] VITALS: BP 139/69; TEMP 98.2; O2SAT 98
[2024-11-14 07:02] LABS: PLATELET COUNT (AUTO) 434 K/uL (150-450); RED BLOOD CELL COUNT(AUTO) 2.78 MIL/uL (4.5-6.0); RED CELL DISTRIBUTION WIDTH 18.1 % (11.5-15.0); WHITE BLOOD COUNT (AUTO) 12.5 K/uL (4.3-11.0)
[2024-11-14 07:40] LABS: ASPARTATE AMINOTRANSFERASE 32 U/L (15-37); CALCIUM, SERUM 7.4 mg/dL (8.5-10.1); CREATININE 0.5 mg/dL (0.6-1.3); PHOSPHORUS 2.7 mg/dL (2.5-4.9); SODIUM SERUM 127 mmol/L (136-145); TOTAL PROTEIN, SERUM 6.2 g/dL (6.4-8.2); UREA NITROGEN, BLOOD 5 mg/dL (7-18)
[2024-11-14 08:00] VITALS: BP 138/82; TEMP 97.9; O2SAT 95
[2024-11-14] MEDS: VANCOMYCIN 750 MG in IV D5W 250 ML IV SCH (09:33)
[2024-11-14] MEDS: Magnesium 1GM/D5W 100ML PREMIX 100 ML IV SCH (10:09)
[2024-11-14] MEDS: POTASSIUM CHLORIDE 20 MEQ TAB.PRT.SR PO ONE (10:09)
[2024-11-14] MEDS: ENSURE CLEAR 237 ML LIQUID (MIX BERRY) PO SCH (11:52)
[2024-11-14 12:00] VITALS: BP 131/72; TEMP 97.8; O2SAT 98
[2024-11-14] MEDS: SODIUM CHLORIDE 1000 MG TABLET PO SCH (12:08)
[2024-11-14 15:07] LABS: CALCIUM, SERUM 7.5 mg/dL (8.5-10.1); CREATININE 0.5 mg/dL (0.6-1.3); SODIUM SERUM 125.0 mmol/L (136-145); UREA NITROGEN, BLOOD 5.0 mg/dL (7-18)
[2024-11-14 16:00] VITALS: BP 150/77; TEMP 98.2; O2SAT 97
[2024-11-14] MEDS ORDERED: IOHEXOL-300 100 ML VIAL IV ONE (17:29)
[2024-11-14] MEDS ORDERED: IV NS 0.9% 250 ML IV ONE (17:29)
[2024-11-14 20:00] VITALS: BP 140/50; TEMP 98.2; O2SAT 100
[2024-11-15] VITALS: BP 126/78; TEMP 98.4; O2SAT 100
[2024-11-15 04:00] VITALS: BP 108/52; TEMP 98.2; O2SAT 98
[2024-11-15 08:07] LABS: FREE KAPPA LT CHAINS SERUM 96.5 mg/L (3.3-19.4); FREE LAMBDA LT CHAIN SERUM 173.6 mg/L (5.7-26.3); KAPPA/LAMBDA RATIO SERUM 0.56 (0.26-1.65)
[2024-11-15 08:08] VITALS: BP 139/58; TEMP 97.4; O2SAT 98
[2024-11-15 08:19] LABS: PLATELET COUNT (AUTO) 498 K/uL (150-450); RED BLOOD CELL COUNT(AUTO) 3.09 MIL/uL (4.5-6.0); RED CELL DISTRIBUTION WIDTH 18.7 % (11.5-15.0); WHITE BLOOD COUNT (AUTO) 13.0 K/uL (4.3-11.0)
[2024-11-15 08:53] LABS: CALCIUM, SERUM 7.5 mg/dL (8.5-10.1); CREATININE 0.5 mg/dL (0.6-1.3); SODIUM SERUM 126.0 mmol/L (136-145); UREA NITROGEN, BLOOD 5.0 mg/dL (7-18)
[2024-11-15 09:12] LABS: PHOSPHORUS 2.7 mg/dL (2.5-4.9)
[2024-11-15 12:22] VITALS: BP 135/79; TEMP 97.5; O2SAT 98
[2024-11-15 16:09] VITALS: BP 104/92; TEMP 97.3; O2SAT 97
[2024-11-15 20:00] VITALS: BP 123/74; TEMP 97.3; O2SAT 93
[2024-11-16] VITALS: BP 116/70; TEMP 97.5; O2SAT 93
[2024-11-16 04:00] VITALS: BP 127/63; TEMP 97.6; O2SAT 93
[2024-11-16 06:57] LABS: INR 1.46 (0.91-1.10)
[2024-11-16 07:00] LABS: PLATELET COUNT (AUTO) 477 K/uL (150-450); RED BLOOD CELL COUNT(AUTO) 2.72 MIL/uL (4.5-6.0); RED CELL DISTRIBUTION WIDTH 18.6 % (11.5-15.0); WHITE BLOOD COUNT (AUTO) 11.1 K/uL (4.3-11.0)
[2024-11-16 07:32] LABS: CALCIUM, SERUM 7.4 mg/dL (8.5-10.1); CREATININE 0.5 mg/dL (0.6-1.3); PHOSPHORUS 2.9 mg/dL (2.5-4.9); SODIUM SERUM 132.0 mmol/L (136-145); UREA NITROGEN, BLOOD 4.0 mg/dL (7-18)
[2024-11-16 08:00] VITALS: BP 91/60; TEMP 98.1; O2SAT 100
[2024-11-16] MEDS: POTASSIUM CHLORIDE 20 MEQ TAB.PRT.SR PO SCH (10:16)
[2024-11-16 12:00] VITALS: BP 107/67; TEMP 97.9; O2SAT 100
[2024-11-16] MEDS: METRONIDAZOLE 500 MG TABLET PO SCH (12:21)
[2024-11-16] MEDS ORDERED: LIDOCAINE 1% INJ 50 ML MDV IJ ONE (14:00)
[2024-11-16 16:00] VITALS: BP 108/71; TEMP 97.3; O2SAT 100
[2024-11-16 20:00] VITALS: BP 104/68; TEMP 97.3; O2SAT 99
[2024-11-17] VITALS: BP 110/72; TEMP 97.6; O2SAT 98
[2024-11-17 04:00] VITALS: BP 115/75; TEMP 97.5; O2SAT 98
[2024-11-17] MEDS: IV D5/ 0.9% NACL 1,000 ML IV PRN (05:40)
[2024-11-17 08:00] VITALS: BP 104/52; TEMP 97.5; O2SAT 97
[2024-11-17 08:13] LABS: CREATININE 0.5 mg/dL (0.6-1.3); SODIUM SERUM 130.0 mmol/L (136-145); UREA NITROGEN, BLOOD 4.0 mg/dL (7-18)
[2024-11-17 08:19] LABS: PLATELET COUNT (AUTO) 393 K/uL (150-450); RED BLOOD CELL COUNT(AUTO) 2.72 MIL/uL (4.5-6.0); RED CELL DISTRIBUTION WIDTH 19.0 % (11.5-15.0); WHITE BLOOD COUNT (AUTO) 11.0 K/uL (4.3-11.0)
[2024-11-17 08:51] LABS: CALCIUM, SERUM 8.0 mg/dL (8.5-10.1)
[2024-11-17] MEDS: POTASSIUM CHLORIDE 20 MEQ TAB.PRT.SR PO SCH (11:26)
[2024-11-17 12:00] VITALS: BP 101/69; TEMP 97.4; O2SAT 97
[2024-11-17 16:00] VITALS: BP 115/59; TEMP 97.5; O2SAT 97
[2024-11-17 16:02] LABS: ASPARTATE AMINOTRANSFERASE 39 U/L (15-37); TOTAL PROTEIN, SERUM 6.2 g/dL (6.4-8.2)
[2024-11-17 20:00] VITALS: BP 109/72; TEMP 97.3; O2SAT 99
[2024-11-18] VITALS (8 sets, daily range): BP systolic 97–151; BP diastolic 48–95; TEMP 97.3–98.1; O2SAT 93–100
[2024-11-18 07:21] LABS: PLATELET COUNT (AUTO) 479 K/uL (150-450); RED BLOOD CELL COUNT(AUTO) 2.72 MIL/uL (4.5-6.0); RED CELL DISTRIBUTION WIDTH 19.5 % (11.5-15.0); WHITE BLOOD COUNT (AUTO) 12.4 K/uL (4.3-11.0)
[2024-11-18 07:41] LABS: CALCIUM, SERUM 7.6 mg/dL (8.5-10.1); CREATININE 0.4 mg/dL (0.6-1.3); SODIUM SERUM 129.0 mmol/L (136-145); UREA NITROGEN, BLOOD 4.0 mg/dL (7-18)
[2024-11-18] MEDS: POTASSIUM CHLORIDE 20 MEQ TAB.PRT.SR PO ONE (10:21)
[2024-11-18] MEDS: SODIUM CHLORIDE 1000 MG TABLET PO SCH (13:26)
[2024-11-19] VITALS: BP 148/85; TEMP 97.5; O2SAT 98
[2024-11-19 04:00] VITALS: BP 129/65; TEMP 97.5; O2SAT 100
[2024-11-19 07:29] LABS: PLATELET COUNT (AUTO) 507 K/uL (150-450); RED BLOOD CELL COUNT(AUTO) 2.67 MIL/uL (4.5-6.0); RED CELL DISTRIBUTION WIDTH 19.4 % (11.5-15.0); WHITE BLOOD COUNT (AUTO) 11.2 K/uL (4.3-11.0)
[2024-11-19 07:53] LABS: ASPARTATE AMINOTRANSFERASE 40 U/L (15-37); CALCIUM, SERUM 7.7 mg/dL (8.5-10.1); CREATININE 0.5 mg/dL (0.6-1.3); PHOSPHORUS 3.0 mg/dL (2.5-4.9); SODIUM SERUM 130 mmol/L (136-145); TOTAL PROTEIN, SERUM 6.0 g/dL (6.4-8.2); UREA NITROGEN, BLOOD 3 mg/dL (7-18)
[2024-11-19 08:00] VITALS: BP 115/74; TEMP 94.6; O2SAT 100
[2024-11-19 10:20] LABS: CALCIUM, SERUM 7.9 mg/dL (8.5-10.1); CREATININE 0.5 mg/dL (0.6-1.3); SODIUM SERUM 132.0 mmol/L (136-145); UREA NITROGEN, BLOOD 3.0 mg/dL (7-18)
[2024-11-19] MEDS: Magnesium 1GM/D5W 100ML PREMIX 100 ML IV SCH (11:25)
[2024-11-19 12:00] VITALS: BP 117/88; TEMP 96.1; O2SAT 100
[2024-11-19 16:00] VITALS: BP 128/72; TEMP 97.7; O2SAT 100
[2024-11-19 20:00] VITALS: BP 95/59; TEMP 97.3; O2SAT 95
[2024-11-20] VITALS: BP 109/40; TEMP 97.4; O2SAT 99
[2024-11-20 04:00] VITALS: BP 123/69; TEMP 97.5; O2SAT 98
[2024-11-20 07:03] LABS: INR 1.4 (0.91-1.10)
[2024-11-20 07:09] LABS: PLATELET COUNT (AUTO) 471 K/uL (150-450); RED BLOOD CELL COUNT(AUTO) 2.66 MIL/uL (4.5-6.0); RED CELL DISTRIBUTION WIDTH 19.9 % (11.5-15.0); WHITE BLOOD COUNT (AUTO) 10.6 K/uL (4.3-11.0)
[2024-11-20 07:18] LABS: ASPARTATE AMINOTRANSFERASE 39 U/L (15-37); CALCIUM, SERUM 7.4 mg/dL (8.5-10.1); CREATININE 0.4 mg/dL (0.6-1.3); PHOSPHORUS 3.2 mg/dL (2.5-4.9); SODIUM SERUM 132 mmol/L (136-145); TOTAL PROTEIN, SERUM 6.1 g/dL (6.4-8.2); UREA NITROGEN, BLOOD 3 mg/dL (7-18)
[2024-11-20 08:00] VITALS: BP 105/66; TEMP 97.7; O2SAT 100
[2024-11-20] MEDS ORDERED: METR500T PO (10:04)
[2024-11-20] MEDS ORDERED: VANC750F2 IV (10:04)
[2024-11-20] MEDS ORDERED: LEVO500P10 IV (10:04)
[2024-11-20] MEDS ORDERED: SODI100037 PO (10:04)
[2024-11-20 12:00] VITALS: BP 128/70; TEMP 97.7; O2SAT 100
[2024-11-20 16:00] VITALS: BP 135/72; TEMP 97.3; O2SAT 98
[2024-11-20] MEDS ORDERED: LIDOCAINE 1% INJ 50 ML MDV IJ ONE (17:00)
[2024-11-20] MEDS: MORPHINE SULFATE INJ 2 MG/ML DISP.SYRIN IV ONE (17:31)
[2024-11-20] MEDS: LORAZEPAM 1 MG TABLET PO ONE (17:31)
[2024-11-20 19:07] LABS: PLATELET COUNT (AUTO) 415 K/uL (150-450); RED BLOOD CELL COUNT(AUTO) 2.85 MIL/uL (4.5-6.0); RED CELL DISTRIBUTION WIDTH 20.1 % (11.5-15.0); WHITE BLOOD COUNT (AUTO) 10.2 K/uL (4.3-11.0)
[2024-11-20 20:00] VITALS: BP 128/77; TEMP 97.3; O2SAT 100
[2024-11-21] VITALS: BP 118/80; TEMP 97.5; O2SAT 99
[2024-11-21 04:00] VITALS: BP 122/69; TEMP 97.8; O2SAT 99
[2024-11-21 06:58] LABS: PLATELET COUNT (AUTO) 398 K/uL (150-450); RED BLOOD CELL COUNT(AUTO) 2.79 MIL/uL (4.5-6.0); RED CELL DISTRIBUTION WIDTH 20.2 % (11.5-15.0); WHITE BLOOD COUNT (AUTO) 9.5 K/uL (4.3-11.0)
[2024-11-21 07:17] LABS: ASPARTATE AMINOTRANSFERASE 45.0 U/L (15-37); CALCIUM, SERUM 7.8 mg/dL (8.5-10.1); CREATININE 0.4 mg/dL (0.6-1.3); PHOSPHORUS 3.4 mg/dL (2.5-4.9); SODIUM SERUM 132.0 mmol/L (136-145); TOTAL PROTEIN, SERUM 6.3 g/dL (6.4-8.2); UREA NITROGEN, BLOOD 4.0 mg/dL (7-18)
[2024-11-21 08:00] VITALS: BP 112/96; TEMP 97.6; O2SAT 95
[2024-11-21] MEDS: VANCOMYCIN 500 MG in IV D5W 100ml IV SCH (09:33)
== END 2024-11-21 15:22 | DRG 871 ==
LOC: ER 10:49 → TELE-TD 14:11 → MEDSG1 16:55 → TELE1 11-07 16:29 → MEDSG1 11-21 09:48
PROVIDERS: ADMIT Internal Medicine; ATTEND Internal Medicine
PROC: 30233N1 Transfusion of Nonautologous Red Blood Cells into Peripheral Vein, Percutaneous Approach (ICD-10-PCS; 2024-10-30)
PROC: 0FD13ZX Extraction of Right Lobe Liver, Percutaneous Approach, Diagnostic (ICD-10-PCS; principal; 2024-10-31)
PROC: 0F9430Z Drainage of Gallbladder with Drainage Device, Percutaneous Approach (ICD-10-PCS; 2024-11-03)
PROC: 0F798DZ Dilation of Common Bile Duct with Intraluminal Device, Via Natural or Artificial Opening Endoscopic (ICD-10-PCS; 2024-11-07)
PROC: BF13YZZ Fluoroscopy of Gallbladder and Bile Ducts using Other Contrast (ICD-10-PCS; 2024-11-07)
PROC: 0FPB8DZ Removal of Intraluminal Device from Hepatobiliary Duct, Via Natural or Artificial Opening Endoscopic (ICD-10-PCS; 2024-11-07)
PROC: 07DR3ZX Extraction of Iliac Bone Marrow, Percutaneous Approach, Diagnostic (ICD-10-PCS; 2024-11-20)
DX: A41.51 Sepsis due to Escherichia coli [E. coli] (principal); E43 Unspecified severe protein-calorie malnutrition; E87.1 Hypo-osmolality and hyponatremia; C25.9 Malignant neoplasm of pancreas, unspecified; Z59.00 Homelessness unspecified; S21.112A Laceration without foreign body of left front wall of thorax without penetration into thoracic cavity, initial encounter; R64 Cachexia; Z68.1 Body mass index [BMI] 19.9 or less, adult; R17 Unspecified jaundice; K82.8 Other specified diseases of gallbladder; D64.9 Anemia, unspecified; J44.9 Chronic obstructive pulmonary disease, unspecified; E86.1 Hypovolemia; R19.09 Other intra-abdominal and pelvic swelling, mass and lump; S81.812A Laceration without foreign body, left lower leg, initial encounter; B96.20 Unspecified Escherichia coli [E. coli] as the cause of diseases classified elsewhere; D47.2 Monoclonal gammopathy; E86.0 Dehydration; Z87.891 Personal history of nicotine dependence; E87.6 Hypokalemia; E88.09 Other disorders of plasma-protein metabolism, not elsewhere classified; R13.10 Dysphagia, unspecified; R65.20 Severe sepsis without septic shock; Z85.07 Personal history of malignant neoplasm of pancreas; Z20.822 Contact with and (suspected) exposure to COVID-19; R74.01 Elevation of levels of liver transaminase levels; X58.XXXA Exposure to other specified factors, initial encounter; Y93.9 Activity, unspecified; Y92.129 Unspecified place in nursing home as the place of occurrence of the external cause; L89.156 Pressure-induced deep tissue damage of sacral region; S61.412A Laceration without foreign body of left hand, initial encounter; Z22.322 Carrier or suspected carrier of Methicillin resistant Staphylococcus aureus; E16.2 Hypoglycemia, unspecified; M84.411S Pathological fracture, right shoulder, sequela; V89.2XXS Person injured in unspecified motor-vehicle accident, traffic, sequela
CPT/HCPCS: 36415; 71045-TC; 71260-TC; 73030-TC; 74018; 74160-TC; 74181-TC; 75989-TC; 76705-TC; 77012-TC; 80048-TC; 80053-TC; 80076-TC; 80202-TC; 81001; 82105; 82140-TC; 82150-TC; 82232; 82247-TC; 82248-TC; 82272-TC; 82378; 82607-TC; 82728-TC; 82784; 82962-TC; 83540-TC; 83605-TC; 83690-TC; 83735-TC; 83935-TC; 84100-TC; 84155; 84165; 84300-TC; 84443-TC; 84550-TC; 85025-TC; 85027-TC; 85610-TC; 85730-TC; 86301; 86334; 86850-TC; 87040-TC; 87070-TC; 87075-TC; 87081-TC; 87086-TC; 87186-TC; 88108-TC; 88305-TC; 88307-TC; 88312-TC; 88333-TC; 88334-TC; 88341; 88342; 97110-TC; 97112-TC; 97116-TC; 97530-TC; A4216; A4223; A4349; A6213; A6253; A6403; C1769; C1876; G0378; J0330; J1956; J2250; J2270; J2405; J2543; J2704; J2765; J2916; J3010; J3370; J3371; J3475; J3480; J3490; J7030; J7040; J7042; J7050; J7060; J7070; J7120; P9016; Q9967

== ENCOUNTER 2024-11-23 16:14 | Inpatient (IN) | payer MEDICARE, OTHER ==
[~2024-11-23] VITALS: Ht 170.2 cm; Wt 53.1 kg
[~2024-11-23 16:14] MED LIST: ACET-868 PO; ALBU1.257 IH; BISA10SU11 RC; CRAN500T3 PO; HYDR-4209 PO; LEVO500P10 IV; LOPE2TAB25 PO; MAG30ORA PO; MAGN400O6 PO; MELA1TAB47 PO; METR500T PO; MULT-213 PO; NA P133E RC; PANT40TA2 PO; SODI100037 PO; VANC750F2 IV; ZOLP5TAB2 PO
[2024-11-23] MEDS: IV NS 0.9% 1,000 ML BAG IV ONE (17:31)
[2024-11-23 17:41] LABS: PLATELET COUNT (AUTO) 346 K/uL (150-450); RED BLOOD CELL COUNT(AUTO) 2.92 MIL/uL (4.5-6.0); RED CELL DISTRIBUTION WIDTH 20.4 % (11.5-15.0); WHITE BLOOD COUNT (AUTO) 9.0 K/uL (4.3-11.0)
[2024-11-23 17:52] LABS: CALCIUM, SERUM 7.9 mg/dL (8.5-10.1); CREATININE 0.5 mg/dL (0.6-1.3); SODIUM SERUM 132.0 mmol/L (136-145); UREA NITROGEN, BLOOD 8.0 mg/dL (7-18)
[2024-11-23 17:57] LABS: LACTIC ACID 1.5 mmol/L (0.4-2.0)
[2024-11-23 18:02] LABS: ASPARTATE AMINOTRANSFERASE 56.0 U/L (15-37); TOTAL PROTEIN, SERUM 6.4 g/dL (6.4-8.2)
[2024-11-23 18:40] LABS: INR 1.35 (0.91-1.10)
[2024-11-23] MEDS ORDERED: MAGNESIUM HYDROXIDE 30 ML UDC PO PRN (20:00)
[2024-11-23] MEDS ORDERED: IV NS 0.9% 1,000 ML IV PRN (20:00)
[2024-11-23] MEDS ORDERED: MAG HYDROX/AL HYDROX/SIMETH 30 ML UDC PO PRN (20:00)
[2024-11-23] MEDS ORDERED: ONDANSETRON HCL/PF 4 MG/2 ML VIAL IVP PRN (20:00)
[2024-11-23 20:04] LABS: LYMPHOCYTES % (MANUAL) 11 % (16-48); MONOCYTES % (MANUAL) 5 % (0-11.0); NEUTROPHILS % (MANUAL) 84 (42-76); PLATELET ESTIMATE ADEQUATE
[2024-11-23] MEDS ORDERED: Medication Not On Formulary EA (Melatonin 1 MG) PO SCH (22:00)
[2024-11-23 22:44] VITALS: BP 95/65; TEMP 97.3; O2SAT 98
[2024-11-24] MEDS: LEVOFLOXACIN 500 MG /D5W 100ML 100 ML IV ONE (01:27)
[2024-11-24] MEDS ORDERED: NS 0.9% IV SCH ×2 (01:30→15:00)
[2024-11-24] MEDS ORDERED: VANCOMYCIN IV SCH ×2 (01:30→15:00)
[2024-11-24] MEDS: ZOLPIDEM TARTRATE 5 MG TABLET PO PRN (02:13)
[2024-11-24] MEDS: VANCOMYCIN IV ONE (02:35)
[2024-11-24] MEDS: NS 0.9% IV ONE (02:35)
[2024-11-24] MEDS: METRONIDAZOLE 500 MG TABLET PO SCH (05:24)
[2024-11-24] MEDS: PANTOPRAZOLE 40 MG TABLET.DR PO SCH (06:41)
[2024-11-24 07:57] LABS: PLATELET COUNT (AUTO) 213 K/uL (150-450); RED BLOOD CELL COUNT(AUTO) 3.06 MIL/uL (4.5-6.0); RED CELL DISTRIBUTION WIDTH 20.2 % (11.5-15.0); WHITE BLOOD COUNT (AUTO) 9.9 K/uL (4.3-11.0)
[2024-11-24 08:00] VITALS: BP 95/58; TEMP 97.9; O2SAT 99
[2024-11-24] MEDS: MEGESTROL ACETATE SUSP 400 MG/10 ML UDC PO SCH (08:11)
[2024-11-24] MEDS: THERAHONEY GEL 1.5 OZ TUBE TP SCH (08:11)
[2024-11-24] MEDS: Z GUARD REMEDY 4 OZ OINT TP PRN (08:11)
[2024-11-24] MEDS: MULTIVIT W/MINERALS 1 TAB TABLET PO SCH (08:11)
[2024-11-24] MEDS: ENSURE ENLIVE CHOC 237 ML CAN PO SCH (08:11)
[2024-11-24 08:13] LABS: ASPARTATE AMINOTRANSFERASE 53.0 U/L (15-37); CALCIUM, SERUM 7.7 mg/dL (8.5-10.1); CREATININE 0.4 mg/dL (0.6-1.3); PHOSPHORUS 3.2 mg/dL (2.5-4.9); SODIUM SERUM 132.0 mmol/L (136-145); TOTAL PROTEIN, SERUM 6.3 g/dL (6.4-8.2); UREA NITROGEN, BLOOD 8.0 mg/dL (7-18)
[2024-11-24] MEDS ORDERED: PANTOPRAZOLE 40 MG VIAL IV SCH (09:00)
[2024-11-24] MEDS: DEXTROSE 50%-WATER 50 ML DISP.SYRIN IVP ONE (09:55)
[2024-11-24] MEDS: POTASSIUM CHLORIDE 20 MEQ POWDER PACKET PO ONE (09:55)
[2024-11-24] MEDS ORDERED: Potassium Chloride 40 MEQ in IV D5/0.45 NACL 1,000 ML IV SCH (10:00)
[2024-11-24] MEDS: IV D5/ 0.9% NACL 1,000 ML IV PRN (11:04)
[2024-11-24] MEDS: ENSURE ENLIVE 237 ML LIQUID (VANILLA) PO SCH (15:14)
[2024-11-24] MEDS: VANCOMYCIN 750 MG in IV D5W 250 ML IV SCH (15:26)
[2024-11-24 16:00] VITALS: BP 106/69; TEMP 97.7; O2SAT 99
[2024-11-24] MEDS: FOLIC ACID 1 MG TABLET PO SCH (16:53)
[2024-11-24 18:35] LABS: APPEARANCE,URINE CLEAR (CLEAR); BLOOD, URINE NEGATIVE Ery/uL (NEGATIVE); LEUKOCYTE ESTERASE ,URINE NEGATIVE (NEGATIVE); NITRITE, URINE NEGATIVE (NEGATIVE); UGLUCOSE NEGATIVE (NEGATIVE)
[2024-11-24 20:50] VITALS: BP 121/59; TEMP 96.9; O2SAT 92
[2024-11-24] MEDS: LEVOFLOXACIN 500 MG /D5W 100ML 100 ML IV SCH (22:28)
[2024-11-25] MEDS: ACETAMINOPHEN 325 MG TABLET PO PRN (03:25)
[2024-11-25 07:09] LABS: CALCIUM, SERUM 7.6 mg/dL (8.5-10.1); CREATININE 0.5 mg/dL (0.6-1.3); SODIUM SERUM 132.0 mmol/L (136-145); UREA NITROGEN, BLOOD 10.0 mg/dL (7-18)
[2024-11-25 07:10] LABS: PHOSPHORUS 2.5 mg/dL (2.5-4.9)
[2024-11-25 08:00] VITALS: BP 101/70; TEMP 98; TEMP 98.1; O2SAT 99
[2024-11-25] MEDS ORDERED: POTASSIUM CHLORIDE 20 MEQ POWDER PACKET PO SCH (11:30)
[2024-11-25] MEDS: POTASSIUM CL. PREMIX PERIPHER. 50 ML IV SCH (11:40)
[2024-11-25 13:13] LABS: IRON, SERUM 22 ug/dl (50-175)
[2024-11-25 16:00] VITALS: BP 110/69; TEMP 98; O2SAT 97
[2024-11-26] MEDS ORDERED: ACIDOPHILUS/BULGARICUS 1 EACH GRAN.PACK PO ONE (02:30)
[2024-11-26] MEDS: ACIDOPHILUS/BULGARICUS 1 EACH TAB.CHEW ONE (02:41)
[2024-11-26] MEDS: ACIDOPHILUS/BULGARICUS 1 EACH TAB.CHEW PO ONE (02:46)
[2024-11-26 07:08] LABS: PLATELET COUNT (AUTO) 228 K/uL (150-450); RED BLOOD CELL COUNT(AUTO) 2.76 MIL/uL (4.5-6.0); RED CELL DISTRIBUTION WIDTH 19.8 % (11.5-15.0); WHITE BLOOD COUNT (AUTO) 10.2 K/uL (4.3-11.0)
[2024-11-26 07:54] LABS: CALCIUM, SERUM 8.3 mg/dL (8.5-10.1); CREATININE 0.5 mg/dL (0.6-1.3); PHOSPHORUS 2.5 mg/dL (2.5-4.9); SODIUM SERUM 130.0 mmol/L (136-145); UREA NITROGEN, BLOOD 7.0 mg/dL (7-18)
[2024-11-26 08:00] VITALS: BP 119/73; TEMP 97.3; O2SAT 94
[2024-11-26] MEDS: ACIDOPHILUS/BULGARICUS 1 EACH TAB.CHEW PO SCH (08:19)
[2024-11-26] MEDS: SODIUM CHLORIDE 1000 MG TABLET PO SCH (08:58)
[2024-11-26] MEDS: VANCOMYCIN 500 MG in IV D5W 100ml IV SCH (12:13)
[2024-11-26 16:00] VITALS: BP 102/63; TEMP 97.2; O2SAT 100
[2024-11-26 21:52] VITALS: BP 105/79; TEMP 97.8; O2SAT 99
[2024-11-27 07:19] LABS: CALCIUM, SERUM 8.0 mg/dL (8.5-10.1); CREATININE 0.5 mg/dL (0.6-1.3); PHOSPHORUS 3.0 mg/dL (2.5-4.9); SODIUM SERUM 131.0 mmol/L (136-145); UREA NITROGEN, BLOOD 8.0 mg/dL (7-18)
[2024-11-27 07:28] LABS: PLATELET COUNT (AUTO) 231 K/uL (150-450); RED BLOOD CELL COUNT(AUTO) 3.23 MIL/uL (4.5-6.0); RED CELL DISTRIBUTION WIDTH 19.9 % (11.5-15.0); WHITE BLOOD COUNT (AUTO) 10.2 K/uL (4.3-11.0)
[2024-11-27 08:00] VITALS: BP 109/68; TEMP 96.3; O2SAT 99
[2024-11-27 08:06] LABS: FIBRINOGEN ACTIVITY 281.0 Mg/dL (213-485); INR 1.5 (0.91-1.10)
[2024-11-27 08:12] VITALS: BP 109/68; TEMP 97.3; O2SAT 99
[2024-11-27] MEDS: PANTOPRAZOLE 40 MG/PACK PACK PO SCH (08:18)
[2024-11-27] MEDS: MAGNESIUM OXIDE 400 MG TABLET PO ONE (10:36)
[2024-11-27 16:00] VITALS: BP 102/62; TEMP 96.4; O2SAT 98
[2024-11-27 20:00] VITALS: BP 105/91; TEMP 97.4; O2SAT 98
[2024-11-28 01:07] LABS: CARBOHYDRATE AG 19-9 43.0 U/mL (0-35); CARCINOEMBRYONIC ANTIGEN (CEA) 62.3 ng/mL (0.0-4.7)
[2024-11-28 07:10] LABS: CALCIUM, SERUM 8.1 mg/dL (8.5-10.1); CREATININE 0.6 mg/dL (0.6-1.3); SODIUM SERUM 130.0 mmol/L (136-145); UREA NITROGEN, BLOOD 10.0 mg/dL (7-18)
[2024-11-28 20:45] VITALS: BP 112/70; TEMP 97; O2SAT 99
[2024-11-28] MEDS: LEVOFLOXACIN (250MG) 250 MG TABLET PO SCH (22:28)
[2024-11-29 07:00] LABS: PLATELET COUNT (AUTO) 189 K/uL (150-450); RED BLOOD CELL COUNT(AUTO) 3.10 MIL/uL (4.5-6.0); RED CELL DISTRIBUTION WIDTH 19.8 % (11.5-15.0); WHITE BLOOD COUNT (AUTO) 11.7 K/uL (4.3-11.0)
[2024-11-29 07:30] VITALS: BP 93/58; TEMP 97.3; O2SAT 99
[2024-11-29 07:33] LABS: CALCIUM, SERUM 8.0 mg/dL (8.5-10.1); CREATININE 0.5 mg/dL (0.6-1.3); PHOSPHORUS 3.5 mg/dL (2.5-4.9); SODIUM SERUM 128.0 mmol/L (136-145); UREA NITROGEN, BLOOD 11.0 mg/dL (7-18)
[2024-11-29 10:07] LABS: FOLIC ACID 7.0 ng/mL (>3.0)
[2024-11-29 16:00] VITALS: BP 90/61; TEMP 98.1; O2SAT 95
[2024-11-29 20:00] VITALS: BP_SYST 100; BP_SYST 124; BP_DIAS 67; BP_DIAS 72; TEMP 97.5; O2SAT 96
[2024-11-30 07:10] LABS: CALCIUM, SERUM 7.9 mg/dL (8.5-10.1); CREATININE 0.4 mg/dL (0.6-1.3); SODIUM SERUM 129.0 mmol/L (136-145); UREA NITROGEN, BLOOD 12.0 mg/dL (7-18)
[2024-11-30 08:00] VITALS: BP 84/55; TEMP 97.3; O2SAT 94
[2024-11-30 11:55] LABS: PLATELET COUNT (AUTO) 206 K/uL (150-450); RED BLOOD CELL COUNT(AUTO) 3.06 MIL/uL (4.5-6.0); RED CELL DISTRIBUTION WIDTH 20.2 % (11.5-15.0); WHITE BLOOD COUNT (AUTO) 12.6 K/uL (4.3-11.0)
[2024-11-30 16:00] VITALS: BP 97/70; TEMP 97.3; O2SAT 93
[2024-11-30 20:00] VITALS: BP 106/96; TEMP 97.7; O2SAT 98
[2024-12-01 07:29] LABS: CALCIUM, SERUM 8.3 mg/dL (8.5-10.1); CREATININE 0.7 mg/dL (0.6-1.3); PHOSPHORUS 3.7 mg/dL (2.5-4.9); SODIUM SERUM 130.0 mmol/L (136-145); UREA NITROGEN, BLOOD 16.0 mg/dL (7-18)
[2024-12-01 07:30] VITALS: BP 86/70; TEMP 99.1; O2SAT 98
[2024-12-01 07:42] LABS: PLATELET COUNT (AUTO) 184 K/uL (150-450); RED BLOOD CELL COUNT(AUTO) 2.99 MIL/uL (4.5-6.0); RED CELL DISTRIBUTION WIDTH 20.4 % (11.5-15.0); WHITE BLOOD COUNT (AUTO) 10.4 K/uL (4.3-11.0)
[2024-12-01] MEDS ORDERED: IV NS 0.9% 250 ML IV ONE (12:23)
[2024-12-01] MEDS ORDERED: IOHEXOL-300 100 ML VIAL IV ONE (12:23)
[2024-12-01] MEDS: VANCOMYCIN 1 GM in IV D5W 250ml IV SCH (17:07)
[2024-12-01 20:00] VITALS: BP 114/90; TEMP 97.3; O2SAT 94
[2024-12-01 20:07] LABS: METHYLMALONIC ACID 163.0 nmol/L (0-378)
[2024-12-01 20:44] VITALS: BP 114/90; TEMP 97.3; O2SAT 94
[2024-12-02 07:11] LABS: CALCIUM, SERUM 8.0 mg/dL (8.5-10.1); CREATININE 0.5 mg/dL (0.6-1.3); SODIUM SERUM 129.0 mmol/L (136-145); UREA NITROGEN, BLOOD 17.0 mg/dL (7-18)
[2024-12-02 08:00] VITALS: BP 102/73; TEMP 97.7; O2SAT 93
[2024-12-02 16:00] VITALS: BP 115/79; TEMP 98.1; O2SAT 99
[2024-12-03 07:00] LABS: PLATELET COUNT (AUTO) 136 K/uL (150-450); RED BLOOD CELL COUNT(AUTO) 3.12 MIL/uL (4.5-6.0); RED CELL DISTRIBUTION WIDTH 20.3 % (11.5-15.0); WHITE BLOOD COUNT (AUTO) 7.9 K/uL (4.3-11.0)
[2024-12-03 07:23] LABS: CALCIUM, SERUM 8.2 mg/dL (8.5-10.1); CREATININE 0.5 mg/dL (0.6-1.3); PHOSPHORUS 2.9 mg/dL (2.5-4.9); SODIUM SERUM 130.0 mmol/L (136-145); UREA NITROGEN, BLOOD 17.0 mg/dL (7-18)
[2024-12-03] MEDS: VANCOMYCIN 1 GM /D5W 250 ML PB IV ONE (07:45)
[2024-12-03 07:52] VITALS: BP 127/76; TEMP 98.1; O2SAT 97
[2024-12-03 08:48] VITALS: BP 127/76; TEMP 97.1; O2SAT 97
[2024-12-03 12:06] LABS: VITAMIN B1 THIAMINE,WB 48.1 nmol/L (66.5-200.0)
[2024-12-03 16:12] VITALS: BP 121/78; TEMP 97.5; O2SAT 93
[2024-12-03] MEDS: HYDROMORPHONE 1 MG/1 ML DISP.SYRIN IV PRN (22:10)
[2024-12-04 07:17] LABS: PLATELET COUNT (AUTO) 132 K/uL (150-450); RED BLOOD CELL COUNT(AUTO) 3.03 MIL/uL (4.5-6.0); RED CELL DISTRIBUTION WIDTH 20.4 % (11.5-15.0); WHITE BLOOD COUNT (AUTO) 9.3 K/uL (4.3-11.0)
[2024-12-04 07:41] VITALS: BP 121/65; TEMP 97.3; O2SAT 93
[2024-12-04 08:00] VITALS: BP 90/59; TEMP 97.2; TEMP 97.5; O2SAT 94; O2SAT 96
[2024-12-04 08:26] LABS: INR 1.41 (0.91-1.10)
[2024-12-04 09:01] VITALS: BP 101/60; TEMP 97.5; O2SAT 96
[2024-12-04 09:34] LABS: CALCIUM, SERUM 8.6 mg/dL (8.5-10.1); CREATININE 0.4 mg/dL (0.6-1.3); PHOSPHORUS 3.2 mg/dL (2.5-4.9); SODIUM SERUM 133.0 mmol/L (136-145); UREA NITROGEN, BLOOD 18.0 mg/dL (7-18)
[2024-12-04 10:00] VITALS: BP 93/69; TEMP 97.5; O2SAT 93
[2024-12-04] MEDS: IV D5/ 0.9% NACL 1,000 ML IV PRN (10:20)
[2024-12-04 16:00] VITALS: BP 102/75; TEMP 97.2; O2SAT 95
[2024-12-04 16:27] LABS: PROTEIN, BODY FLUID 2.1 G/DL
[2024-12-04 16:45] LABS: APPEARANCE,SPUN,BODY FLUID CLEAR (CLEAR); TOTAL VOLUME,BODY FLUID 1000 mL; WBC, BODY FLUID 285 /cu. mm. (0-200)
[2024-12-04 18:13] LABS: MONOCYTES,BODY FLUID 5 %
[2024-12-04 20:00] VITALS: BP 104/79; TEMP 97.8; O2SAT 98
[2024-12-05 07:30] VITALS: BP 92/45; TEMP 97.1; O2SAT 96
[2024-12-05 07:43] VITALS: BP 92/45; O2SAT 95
[2024-12-05 07:47] LABS: CALCIUM, SERUM 8.2 mg/dL (8.5-10.1); CREATININE 0.5 mg/dL (0.6-1.3); SODIUM SERUM 129.0 mmol/L (136-145); UREA NITROGEN, BLOOD 19.0 mg/dL (7-18)
[2024-12-05] MEDS: DEXTROSE 50%-WATER 50 ML DISP.SYRIN IVP STA (07:54)
[2024-12-05 08:43] LABS: PLATELET COUNT (AUTO) 116 K/uL (150-450); RED BLOOD CELL COUNT(AUTO) 3.08 MIL/uL (4.5-6.0); RED CELL DISTRIBUTION WIDTH 21.3 % (11.5-15.0); WHITE BLOOD COUNT (AUTO) 8.4 K/uL (4.3-11.0)
[2024-12-05] MEDS: VANCOMYCIN 750 MG in IV D5W 250 ML IV SCH (17:28)
[2024-12-05 20:27] VITALS: BP 115/73; TEMP 94.9; O2SAT 98
[2024-12-05 21:30] VITALS: TEMP 97.2; O2SAT 96
[2024-12-05] MEDS: DEXTROSE 50%-WATER 50 ML DISP.SYRIN IV PRN (22:21)
[2024-12-05] MEDS: BLOOD SUGAR DIAGNOSTIC 1 EACH STRIP IN SCH (22:27)
[2024-12-06 07:19] LABS: CALCIUM, SERUM 8.3 mg/dL (8.5-10.1); CREATININE 0.5 mg/dL (0.6-1.3); PHOSPHORUS 2.9 mg/dL (2.5-4.9); SODIUM SERUM 133.0 mmol/L (136-145); UREA NITROGEN, BLOOD 16.0 mg/dL (7-18)
[2024-12-06 08:00] VITALS: BP 99/64; TEMP 98.2
[2024-12-06 08:09] LABS: PLATELET COUNT (AUTO) 112 K/uL (150-450); RED BLOOD CELL COUNT(AUTO) 2.88 MIL/uL (4.5-6.0); RED CELL DISTRIBUTION WIDTH 20.2 % (11.5-15.0); WHITE BLOOD COUNT (AUTO) 11.4 K/uL (4.3-11.0)
[2024-12-06] MEDS: ENSURE ENLIVE CHOC 237 ML CAN PO SCH (08:26)
[2024-12-06] MEDS: PROSOURCE / PROSTAT (PYXIS) 30 ML UDC GT SCH (08:26)
[2024-12-06] MEDS ORDERED: POTASSIUM CHLORIDE 20 MEQ POWDER PACKET PO ONE (09:30)
[2024-12-06] MEDS: POTASSIUM CL. PREMIX PERIPHER. 50 ML IV SCH (10:26)
[2024-12-06] MEDS ORDERED: TPN/PPN PER PHARMACY IV PRN (11:00)
[2024-12-06] MEDS: DEXTROSE 50%-WATER 50 ML DISP.SYRIN IVP ONE (11:44)
[2024-12-06 12:10] VITALS: BP 105/61
[2024-12-06] MEDS: TPN BAG #1 IV SCH (14:31)
[2024-12-06] MEDS ORDERED: PPN BAG #1 IV SCH (15:00)
[2024-12-06 16:00] VITALS: BP 104/52; TEMP 98.1; O2SAT 100
[2024-12-06] MEDS: FUROSEMIDE 20 MG TABLET PO SCH (16:10)
[2024-12-06] MEDS: SPIRONOLACTONE 25 MG TABLET PO SCH (17:00)
[2024-12-06 17:27] LABS: FIBRINOGEN ACTIVITY 305.0 Mg/dL (213-485); INR 1.5 (0.91-1.10)
[2024-12-06] MEDS: BLOOD SUGAR DIAGNOSTIC 1 EACH STRIP IN SCH (17:30)
[2024-12-06] MEDS: DEXTROSE 50%-WATER 50 ML DISP.SYRIN IV PRN (17:39)
[2024-12-06 20:00] VITALS: BP 119/59; TEMP 98.1; O2SAT 94
[2024-12-06] MEDS: INSULIN REGULAR, HUMAN 100 UNIT/ML 3 ML VIAL SQ PRN (23:14)
[2024-12-07 07:00] VITALS: BP 95/65; O2SAT 94
[2024-12-07 07:23] LABS: PLATELET COUNT (AUTO) 102 K/uL (150-450); RED BLOOD CELL COUNT(AUTO) 2.75 MIL/uL (4.5-6.0); RED CELL DISTRIBUTION WIDTH 20.1 % (11.5-15.0); WHITE BLOOD COUNT (AUTO) 9.2 K/uL (4.3-11.0)
[2024-12-07 07:53] LABS: CALCIUM, SERUM 7.9 mg/dL (8.5-10.1); CREATININE 0.5 mg/dL (0.6-1.3); PHOSPHORUS 2.3 mg/dL (2.5-4.9); SODIUM SERUM 135.0 mmol/L (136-145); UREA NITROGEN, BLOOD 17.0 mg/dL (7-18)
[2024-12-07] MEDS ORDERED: FUROSEMIDE 20 MG TABLET PO SCH (09:00)
[2024-12-07] MEDS ORDERED: SPIRONOLACTONE 25 MG TABLET PO SCH (09:00)
[2024-12-07] MEDS: POTASSIUM CL. PREMIX PERIPHER. 50 ML IV SCH (10:30)
[2024-12-07] MEDS: Magnesium 1GM/D5W 100ML PREMIX 100 ML IV SCH (10:39)
[2024-12-07] MEDS: TPN#2 IV SCH (13:30)
[2024-12-07 16:00] VITALS: BP 120/72; O2SAT 97
[2024-12-07] MEDS: FUROSEMIDE 20 MG/2 ML VIAL IV SCH (18:17)
[2024-12-07 20:00] VITALS: BP 110/37; TEMP 94.1; O2SAT 94
[2024-12-07 20:32] VITALS: BP 119/37; TEMP 94.9; O2SAT 95
[2024-12-07] MEDS: Sodium Phosphate 15 MMOL in IV NS 0.9% 245 ML IV SCH (21:13)
[2024-12-08] MEDS: IV D5/ 0.9% NACL 1,000 ML IV PRN (06:28)
[2024-12-08] MEDS: TPN #3 IV SCH (06:48)
[2024-12-08 07:30] VITALS: BP 138/79; TEMP 97.6; O2SAT 100
[2024-12-08 07:44] LABS: CALCIUM, SERUM 7.6 mg/dL (8.5-10.1); CREATININE 0.5 mg/dL (0.6-1.3); PHOSPHORUS 2.8 mg/dL (2.5-4.9); SODIUM SERUM 132.0 mmol/L (136-145); UREA NITROGEN, BLOOD 22.0 mg/dL (7-18)
[2024-12-08 08:00] VITALS: BP 109/57; TEMP 97.7; O2SAT 97
[2024-12-08] MEDS: TPN #4 IV SCH (10:06)
[2024-12-08] MEDS: POTASSIUM CL. PREMIX PERIPHER. 50 ML IV SCH (10:10)
[2024-12-08 12:40] LABS: PLATELET COUNT (AUTO) 66 K/uL (150-450); RED BLOOD CELL COUNT(AUTO) 2.71 MIL/uL (4.5-6.0); RED CELL DISTRIBUTION WIDTH 20.4 % (11.5-15.0); WHITE BLOOD COUNT (AUTO) 6.0 K/uL (4.3-11.0)
[2024-12-08 14:05] LABS: LYMPHOCYTES % (MANUAL) 13 % (16-48); MONOCYTES % (MANUAL) 2 % (0-11.0); NEUTROPHILS % (MANUAL) 85 (42-76); PLATELET ESTIMATE DECREASED
[2024-12-08] MEDS ORDERED: IOHEXOL-300 100 ML VIAL IV ONE (14:19)
[2024-12-08] MEDS ORDERED: IV NS 0.9% 250 ML IV ONE (14:19)
[2024-12-08 16:00] VITALS: BP 122/52; TEMP 97.7; O2SAT 94
[2024-12-08 20:00] VITALS: BP 105/89; TEMP 97.5; O2SAT 97
[2024-12-08] MEDS: Magnesium 1GM/D5W 100ML PREMIX 100 ML IV SCH (21:55)
[2024-12-08] MEDS: TPN #5 IV SCH (22:11)
[2024-12-09] MEDS: INSULIN REGULAR, HUMAN 100 UNIT/ML 3 ML VIAL SQ PRN (00:24)
[2024-12-09 07:46] LABS: CALCIUM, SERUM 7.6 mg/dL (8.5-10.1); CREATININE 0.4 mg/dL (0.6-1.3); PHOSPHORUS 2.0 mg/dL (2.5-4.9); SODIUM SERUM 134.0 mmol/L (136-145); UREA NITROGEN, BLOOD 28.0 mg/dL (7-18)
[2024-12-09 08:00] VITALS: BP 116/60; TEMP 98.1; O2SAT 96
[2024-12-09 08:08] LABS: PLATELET COUNT (AUTO) 55 K/uL (150-450); RED BLOOD CELL COUNT(AUTO) 2.61 MIL/uL (4.5-6.0); RED CELL DISTRIBUTION WIDTH 20.0 % (11.5-15.0); WHITE BLOOD COUNT (AUTO) 7.0 K/uL (4.3-11.0)
[2024-12-09 09:43] VITALS: BP 116/60; TEMP 98.1; O2SAT 96
[2024-12-09] MEDS: POTASSIUM CL. PREMIX PERIPHER. 50 ML IV SCH ×2 (09:51→20:21)
[2024-12-09 10:21] LABS: LYMPHOCYTES % (MANUAL) 6 % (16-48); NEUTROPHILS % (MANUAL) 94 (42-76); PLATELET ESTIMATE DECREASED
[2024-12-09] MEDS: Sodium Phosphate 15 MMOL in IV NS 0.9% 245 ML IV SCH (11:14)
[2024-12-09] MEDS: TPN #6 IV SCH (12:02)
[2024-12-09 16:00] VITALS: BP 121/63; TEMP 97.7; O2SAT 98
[2024-12-09 20:00] VITALS: BP 101/83; TEMP 97.3; O2SAT 93
[2024-12-09 20:44] VITALS: BP 101/83; TEMP 97.3; O2SAT 93
[2024-12-10] VITALS (42 sets, daily range): BP systolic 72–141; BP diastolic 46–100; TEMP 95.3–97.6; O2SAT 87–100
[2024-12-10 07:34] LABS: CALCIUM, SERUM 7.6 mg/dL (8.5-10.1); CREATININE 0.5 mg/dL (0.6-1.3); PHOSPHORUS 2.0 mg/dL (2.5-4.9); SODIUM SERUM 139.0 mmol/L (136-145); UREA NITROGEN, BLOOD 29.0 mg/dL (7-18)
[2024-12-10] MEDS ORDERED: NOREPINEPHRINE 8 MG in IV D5W 242 ML IV PRN (09:30)
[2024-12-10] MEDS: Magnesium 1GM/D5W 100ML PREMIX 100 ML IV SCH (09:52)
[2024-12-10] MEDS: POTASSIUM PHOSPHATE MM 7.5 MMOL in IV NS 0.9% 100 ML IV SCH (10:19)
[2024-12-10 11:02] LABS: ASPARTATE AMINOTRANSFERASE 80.0 U/L (15-37); RED BLOOD CELL COUNT(AUTO) 2.28 MIL/uL (4.5-6.0); RED CELL DISTRIBUTION WIDTH 21.0 % (11.5-15.0); TOTAL PROTEIN, SERUM 5.0 g/dL (6.4-8.2); WHITE BLOOD COUNT (AUTO) 5.7 K/uL (4.3-11.0)
[2024-12-10 11:25] LABS: PLATELET COUNT (AUTO) 48 K/uL (150-450)
[2024-12-10] MEDS: NOREPINEPHRINE 8 MG in IV D5W 242 ML IV PRN (11:50)
[2024-12-10 12:17] LABS: LYMPHOCYTES % (MANUAL) 8 % (16-48); MONOCYTES % (MANUAL) 1 % (0-11.0); NEUTROPHILS % (MANUAL) 91 (42-76); PLATELET ESTIMATE DECREASED
[2024-12-10 13:15] LABS: APPEARANCE,URINE CLEAR (CLEAR); BLOOD, URINE TRACE-INTA Ery/uL (NEGATIVE); LEUKOCYTE ESTERASE ,URINE NEGATIVE (NEGATIVE); NITRITE, URINE NEGATIVE (NEGATIVE); UGLUCOSE NEGATIVE (NEGATIVE)
[2024-12-10 13:33] LABS: ADD URINE CULTURE NO; SQUAMOUS EPITHELIAL CELL,UR 0-2 /HPF (None Seen)
[2024-12-10] MEDS: ALBUMIN 25% 12.5 GM in PREMIX 1 EA IV ONE (14:28)
[2024-12-10] MEDS: TPN #7 IV SCH (15:51)
[2024-12-10] MEDS: CLOTRIMAZOLE 1% 15 GM TUBE TP SCH (17:13)
[2024-12-10 21:43] LABS: FIBRINOGEN ACTIVITY 257.0 Mg/dL (213-485); INR 1.53 (0.91-1.10)
[2024-12-11] VITALS (30 sets, daily range): BP systolic 90–137; BP diastolic 58–105; TEMP 94.2–98.6; O2SAT 90–100
[2024-12-11 01:23] LABS: FIBRINOGEN ACTIVITY 338.0 Mg/dL (213-485); INR 1.52 (0.91-1.10)
[2024-12-11 07:15] LABS: RED BLOOD CELL COUNT(AUTO) 2.92 MIL/uL (4.5-6.0); RED CELL DISTRIBUTION WIDTH 19.8 % (11.5-15.0); WHITE BLOOD COUNT (AUTO) 7.2 K/uL (4.3-11.0)
[2024-12-11 07:31] LABS: FIBRINOGEN ACTIVITY 329.0 Mg/dL (213-485); INR 1.52 (0.91-1.10)
[2024-12-11 07:32] LABS: PLATELET COUNT (AUTO) 50 K/uL (150-450)
[2024-12-11 08:52] LABS: BASOPHILS % (MANUAL) 0 % (0.0-2.0); CALCIUM, SERUM 7.3 mg/dL (8.5-10.1); CREATININE 0.3 mg/dL (0.6-1.3); EOSINOPHILS % (MANUAL) 0 % (0-4); LYMPHOCYTES % (MANUAL) 8 % (16-48); MONOCYTES % (MANUAL) 2 % (0-11.0); NEUTROPHILS % (MANUAL) 90 (42-76); PHOSPHORUS 2.3 mg/dL (2.5-4.9); SODIUM SERUM 141.0 mmol/L (136-145); UREA NITROGEN, BLOOD 31.0 mg/dL (7-18)
[2024-12-11 08:53] LABS: PLATELET ESTIMATE DECREASED
[2024-12-11] MEDS ORDERED: POTASSIUM CL. PREMIX PERIPHER. 50 ML IV SCH (10:30)
[2024-12-11] MEDS: POTASSIUM CL. PREMIX PERIPHER. 50 ML IV SCH (10:47)
[2024-12-11] MEDS: POTASSIUM PHOSPHATE MM 7.5 MMOL in IV NS 0.9% 100 ML IV SCH (11:32)
[2024-12-11] MEDS: MEROPENEM 1 G in IV NS 0.9% 100 ML IV SCH (13:14)
[2024-12-11] MEDS: TPN #8 IV SCH (19:54)
[2024-12-12] VITALS (36 sets, daily range): BP systolic 97–147; BP diastolic 55–96; TEMP 95–97.4; O2SAT 78–100
[2024-12-12 05:06] LABS: PLATELET COUNT (AUTO) 51 K/uL (150-450); RED BLOOD CELL COUNT(AUTO) 2.83 MIL/uL (4.5-6.0); RED CELL DISTRIBUTION WIDTH 20.1 % (11.5-15.0); WHITE BLOOD COUNT (AUTO) 7.8 K/uL (4.3-11.0)
[2024-12-12 05:21] LABS: FIBRINOGEN ACTIVITY 365.0 Mg/dL (213-485); INR 1.42 (0.91-1.10)
[2024-12-12 05:22] LABS: CALCIUM, SERUM 7.6 mg/dL (8.5-10.1); CREATININE 0.4 mg/dL (0.6-1.3); SODIUM SERUM 143.0 mmol/L (136-145); UREA NITROGEN, BLOOD 28.0 mg/dL (7-18)
[2024-12-12 05:44] LABS: NEUTROPHILS % (MANUAL) 93 (42-76)
[2024-12-12 05:45] LABS: LYMPHOCYTES % (MANUAL) 6 % (16-48); MONOCYTES % (MANUAL) 1 % (0-11.0); PLATELET ESTIMATE DECREASED
[2024-12-12] MEDS: POTASSIUM CL. PREMIX PERIPHER. 50 ML IV SCH (08:37)
[2024-12-12 12:06] LABS: PHOSPHORUS 1.9 mg/dL (2.5-4.9)
[2024-12-12] MEDS: FUROSEMIDE 20 MG/2 ML VIAL IV SCH (13:21)
[2024-12-12] MEDS: Sodium Phosphate 15 MMOL in IV NS 0.9% 245 ML IV SCH (14:06)
[2024-12-12] MEDS: TPN BAG #9 IV SCH (20:51)
[2024-12-13] VITALS (35 sets, daily range): BP systolic 91–131; BP diastolic 58–94; TEMP 96–98.4; O2SAT 93–100
[2024-12-13 05:17] LABS: CALCIUM, SERUM 7.4 mg/dL (8.5-10.1); CREATININE 0.3 mg/dL (0.6-1.3); PHOSPHORUS 1.8 mg/dL (2.5-4.9); UREA NITROGEN, BLOOD 26.0 mg/dL (7-18)
[2024-12-13 05:26] LABS: PLATELET COUNT (AUTO) 53 K/uL (150-450); RED BLOOD CELL COUNT(AUTO) 2.87 MIL/uL (4.5-6.0); RED CELL DISTRIBUTION WIDTH 20.0 % (11.5-15.0); WHITE BLOOD COUNT (AUTO) 7.6 K/uL (4.3-11.0)
[2024-12-13 05:50] LABS: SODIUM SERUM 143.0 mmol/L (136-145)
[2024-12-13 06:07] LABS: INR 1.37 (0.91-1.10)
[2024-12-13 06:25] LABS: LYMPHOCYTES % (MANUAL) 5 % (16-48); MONOCYTES % (MANUAL) 2 % (0-11.0); NEUTROPHILS % (MANUAL) 93 (42-76); PLATELET ESTIMATE DECREASED
[2024-12-13] MEDS: POTASSIUM CL. PREMIX PERIPHER. 50 ML IV SCH ×2 (07:49→20:25)
[2024-12-13] MEDS: Magnesium 1GM/D5W 100ML PREMIX 100 ML IV SCH ×2 (07:49→20:25)
[2024-12-13] MEDS ORDERED: POTASSIUM CHLORIDE 20 MEQ POWDER PACKET NG SCH (08:00)
[2024-12-13] MEDS: PANTOPRAZOLE 40 MG VIAL IV SCH (08:09)
[2024-12-13 10:07] LABS: ABG BASE EXCESS 3.1 mmol/L (-2.0-3.0); ABG OXYGEN SATURATION 93.0 % (94.0-98.0); ABG PCO2 34.5 mmHg (35.0-48.0); ABG PH 7.501 (7.350-7.450); ABG PO2 67.7 mmHg (83.0-108.0); ABG TOTAL HEMOGLOBIN 8.1 G/dL (13.5-17.5); FLOW, BLOOD GAS 10.00 L/min (0.00-30.00); FRACTIONATED INSPIRED OXYGEN 60.0 %; SITE, ABG RIGHT BRACHIAL
[2024-12-13] MEDS: POTASSIUM PHOSPHATE MM 15 MMOL in IV NS 0.9% 250 ML IV SCH (11:46)
[2024-12-13] MEDS: TPN BAG #10 IV SCH (20:24)
[2024-12-13 20:46] LABS: FIBRINOGEN ACTIVITY 413.0 Mg/dL (213-485)
[2024-12-14] VITALS (26 sets, daily range): BP systolic 97–132; BP diastolic 62–94; TEMP 97–98.4; O2SAT 97–100
[2024-12-14 05:05] LABS: PLATELET COUNT (AUTO) 53 K/uL (150-450); RED BLOOD CELL COUNT(AUTO) 2.53 MIL/uL (4.5-6.0); RED CELL DISTRIBUTION WIDTH 19.8 % (11.5-15.0); WHITE BLOOD COUNT (AUTO) 6.9 K/uL (4.3-11.0)
[2024-12-14 05:38] LABS: CALCIUM, SERUM 7.7 mg/dL (8.5-10.1); CREATININE 0.4 mg/dL (0.6-1.3); PHOSPHORUS 1.6 mg/dL (2.5-4.9); SODIUM SERUM 142.0 mmol/L (136-145); UREA NITROGEN, BLOOD 24.0 mg/dL (7-18)
[2024-12-14 06:16] LABS: EOSINOPHILS % (MANUAL) 1 % (0-4); LYMPHOCYTES % (MANUAL) 7 % (16-48); MONOCYTES % (MANUAL) 4 % (0-11.0); NEUTROPHILS % (MANUAL) 88 (42-76); PLATELET ESTIMATE DECREASED
[2024-12-14] MEDS: POTASSIUM PHOSPHATE MM 15 MMOL in IV NS 0.9% 250 ML IV SCH (09:29)
[2024-12-14] MEDS: ACETYLCYSTEINE 10% SOLN 400 MG/4 ML VIAL NEB SCH (13:56)
[2024-12-14] MEDS: POTASSIUM CL. PREMIX PERIPHER. 50 ML IV SCH (15:56)
[2024-12-14] MEDS: TPN BAG #11 IV SCH (20:12)
[2024-12-14] MEDS: Magnesium 1GM/D5W 100ML PREMIX 100 ML IV SCH (21:23)
[2024-12-15] VITALS (33 sets, daily range): BP systolic 93–136; BP diastolic 50–106; TEMP 96.6–97.5; O2SAT 94–100
[2024-12-15 05:00] LABS: PLATELET COUNT (AUTO) 51 K/uL (150-450); RED BLOOD CELL COUNT(AUTO) 2.38 MIL/uL (4.5-6.0); RED CELL DISTRIBUTION WIDTH 20.1 % (11.5-15.0); WHITE BLOOD COUNT (AUTO) 6.2 K/uL (4.3-11.0)
[2024-12-15 05:34] LABS: CALCIUM, SERUM 7.6 mg/dL (8.5-10.1); CREATININE 0.3 mg/dL (0.6-1.3); PHOSPHORUS 1.7 mg/dL (2.5-4.9); SODIUM SERUM 146.0 mmol/L (136-145); UREA NITROGEN, BLOOD 24.0 mg/dL (7-18)
[2024-12-15 06:06] LABS: PLATELET ESTIMATE DECREASED
[2024-12-15 06:07] LABS: EOSINOPHILS % (MANUAL) 3 % (0-4); LYMPHOCYTES % (MANUAL) 10 % (16-48); MONOCYTES % (MANUAL) 5 % (0-11.0); NEUTROPHILS % (MANUAL) 82 (42-76)
[2024-12-15] MEDS: POTASSIUM PHOSPHATE MM 15 MMOL in IV NS 0.9% 250 ML IV SCH (08:14)
[2024-12-15] MEDS ORDERED: POTASSIUM CHLORIDE 20 MEQ TAB.PRT.SR PO SCH (10:00)
[2024-12-15] MEDS: POTASSIUM CL. PREMIX PERIPHER. 50 ML IV SCH (12:56)
[2024-12-15] MEDS ORDERED: POTASSIUM PHOSPHATE MM 15 MMOL in IV NS 0.9% 250 ML IV SCH ×2 (13:00→18:00)
[2024-12-15] MEDS: Sodium Phosphate 15 MMOL in IV NS 0.9% 245 ML IV SCH (17:56)
[2024-12-15] MEDS: Magnesium 1GM/D5W 100ML PREMIX 100 ML IV SCH (20:22)
[2024-12-15] MEDS: TPN BAG #12 IV SCH (20:30)
[2024-12-15] MEDS ORDERED: Magnesium 1GM/D5W 100ML PREMIX 100 ML IV SCH (21:00)
[2024-12-16] VITALS (28 sets, daily range): BP systolic 97–160; BP diastolic 61–94; TEMP 97.1–97.9; O2SAT 93–100
[2024-12-16 05:11] LABS: RED BLOOD CELL COUNT(AUTO) 2.95 MIL/uL (4.5-6.0); RED CELL DISTRIBUTION WIDTH 17.9 % (11.5-15.0); WHITE BLOOD COUNT (AUTO) 7.5 K/uL (4.3-11.0)
[2024-12-16 05:31] LABS: PLATELET COUNT (AUTO) 60 K/uL (150-450)
[2024-12-16 05:32] LABS: CALCIUM, SERUM 7.5 mg/dL (8.5-10.1); CREATININE 0.3 mg/dL (0.6-1.3); PHOSPHORUS 2.1 mg/dL (2.5-4.9); SODIUM SERUM 141.0 mmol/L (136-145); UREA NITROGEN, BLOOD 23.0 mg/dL (7-18)
[2024-12-16 05:42] LABS: FIBRINOGEN ACTIVITY 448.0 Mg/dL (213-485); INR 1.23 (0.91-1.10)
[2024-12-16 05:43] LABS: IRON, SERUM 27 ug/dl (50-175)
[2024-12-16 06:30] LABS: LYMPHOCYTES % (MANUAL) 13 % (16-48); MONOCYTES % (MANUAL) 6 % (0-11.0); NEUTROPHILS % (MANUAL) 81 (42-76); PLATELET ESTIMATE DECREASED
[2024-12-16] MEDS: POTASSIUM CHLORIDE 20 MEQ TAB.PRT.SR PO SCH (08:01)
[2024-12-16] MEDS: NEUTRA PHOS 1 POWD.PACKET PO SCH (10:05)
[2024-12-16] MEDS: Magnesium 1GM/D5W 100ML PREMIX 100 ML IV SCH (16:49)
[2024-12-16] MEDS: TPN #13 IV SCH (18:38)
[2024-12-17] VITALS (27 sets, daily range): BP systolic 26–139; BP diastolic 62–88; TEMP 97.7–98.2; O2SAT 95–100
[2024-12-17 04:35] LABS: CALCIUM, SERUM 7.3 mg/dL (8.5-10.1); CREATININE 0.2 mg/dL (0.6-1.3); PHOSPHORUS 1.7 mg/dL (2.5-4.9); SODIUM SERUM 131.0 mmol/L (136-145); UREA NITROGEN, BLOOD 24.0 mg/dL (7-18)
[2024-12-17 08:04] LABS: PLATELET COUNT (AUTO) 76 K/uL (150-450); RED BLOOD CELL COUNT(AUTO) 2.85 MIL/uL (4.5-6.0); RED CELL DISTRIBUTION WIDTH 19.5 % (11.5-15.0); WHITE BLOOD COUNT (AUTO) 7.3 K/uL (4.3-11.0)
[2024-12-17] MEDS: ADENOSINE 6 MG/2 ML VIAL IVP ONE (09:00)
[2024-12-17 09:33] LABS: EOSINOPHILS % (MANUAL) 2 % (0-4); LYMPHOCYTES % (MANUAL) 23 % (16-48); NEUTROPHILS % (MANUAL) 86 (42-76); PLATELET ESTIMATE DECREASED
[2024-12-17] MEDS: Sodium Phosphate 15 MMOL in IV NS 0.9% 245 ML IV SCH (10:23)
[2024-12-17] MEDS: QUETIAPINE FUMARATE 25 MG TABLET PO ONE (10:24)
[2024-12-17] MEDS: POTASSIUM PHOSPHATE MM 7.5 MMOL in IV NS 0.9% 100 ML IV SCH (13:59)
[2024-12-17] MEDS: TPN #14 IV SCH (16:47)
[2024-12-17] MEDS: VANCOMYCIN 1 GM in IV D5W 250ml IV SCH (18:16)
[2024-12-17] MEDS: POTASSIUM CL. PREMIX PERIPHER. 50 ML IV SCH (18:16)
[2024-12-17] MEDS: Magnesium 1GM/D5W 100ML PREMIX 100 ML IV SCH (19:39)
[2024-12-17 21:07] LABS: ABG BASE EXCESS 2.3 mmol/L (-2.0-3.0); ABG OXYGEN SATURATION 99.6 % (94.0-98.0); ABG PCO2 30.8 mmHg (35.0-48.0); ABG PH 7.524 (7.350-7.450); ABG PO2 420.5 mmHg (83.0-108.0); ABG TOTAL HEMOGLOBIN 9.1 G/dL (13.5-17.5); FLOW, BLOOD GAS 15.00 L/min (0.00-30.00); FRACTIONATED INSPIRED OXYGEN 100.0 %; SITE, ABG RIGHT BRACHIAL
[2024-12-18] VITALS (12 sets, daily range): BP systolic 94–122; BP diastolic 47–82; TEMP 97.3–98.1; O2SAT 95–100
[2024-12-18 04:48] LABS: PLATELET COUNT (AUTO) 79 K/uL (150-450); RED BLOOD CELL COUNT(AUTO) 2.69 MIL/uL (4.5-6.0); RED CELL DISTRIBUTION WIDTH 19.2 % (11.5-15.0); WHITE BLOOD COUNT (AUTO) 7.9 K/uL (4.3-11.0)
[2024-12-18 05:10] LABS: CALCIUM, SERUM 7.7 mg/dL (8.5-10.1); CREATININE 0.3 mg/dL (0.6-1.3); PHOSPHORUS 2.1 mg/dL (2.5-4.9); SODIUM SERUM 131.0 mmol/L (136-145); UREA NITROGEN, BLOOD 28.0 mg/dL (7-18)
[2024-12-18 05:56] LABS: EOSINOPHILS % (MANUAL) 1 % (0-4); LYMPHOCYTES % (MANUAL) 7 % (16-48); MONOCYTES % (MANUAL) 4 % (0-11.0); NEUTROPHILS % (MANUAL) 88 (42-76); PLATELET ESTIMATE DECREASED
[2024-12-18] MEDS: Sodium Phosphate 15 MMOL in IV NS 0.9% 245 ML IV SCH (11:48)
[2024-12-18] MEDS: TPN #15 IV SCH (14:56)
[2024-12-18] MEDS: POTASSIUM PHOSPHATE MM 7.5 MMOL in IV NS 0.9% 100 ML IV SCH (16:07)
[2024-12-18] MEDS: Magnesium 1GM/D5W 100ML PREMIX 100 ML IV SCH (19:10)
[2024-12-18] MEDS: POTASSIUM CHLORIDE 10 MEQ/50 ML PREMIXED IVPB FOR PERIPHERAL LINE IV SCH (19:11)
== END 2024-12-18 21:52 | DRG 177 ==
LOC: ER 16:19 → MED 22:15 → ICU 12-10 08:37 → TELE-TD 12-18 09:46
PROVIDERS: ADMIT Nurse Practitioner Acute Care; ATTEND Internal Medicine
PROC: 0W9B3ZZ Drainage of Left Pleural Cavity, Percutaneous Approach (ICD-10-PCS; principal; 2024-12-04)
PROC: 02HV33Z Insertion of Infusion Device into Superior Vena Cava, Percutaneous Approach (ICD-10-PCS; 2024-12-06)
PROC: B548ZZA Ultrasonography of Superior Vena Cava, Guidance (ICD-10-PCS; 2024-12-06)
PROC: 30233N1 Transfusion of Nonautologous Red Blood Cells into Peripheral Vein, Percutaneous Approach (ICD-10-PCS; 2024-12-11)
DX: J15.69 Pneumonia due to other Gram-negative bacteria (principal); E43 Unspecified severe protein-calorie malnutrition; G93.41 Metabolic encephalopathy; J96.01 Acute respiratory failure with hypoxia; K75.0 Abscess of liver; Z59.00 Homelessness unspecified; C25.9 Malignant neoplasm of pancreas, unspecified; C78.7 Secondary malignant neoplasm of liver and intrahepatic bile duct; R64 Cachexia; J90 Pleural effusion, not elsewhere classified; J98.11 Atelectasis; Z68.1 Body mass index [BMI] 19.9 or less, adult; D68.9 Coagulation defect, unspecified; E22.2 Syndrome of inappropriate secretion of antidiuretic hormone; J44.0 Chronic obstructive pulmonary disease with (acute) lower respiratory infection; R18.8 Other ascites; R62.7 Adult failure to thrive; Z87.891 Personal history of nicotine dependence; Z90.49 Acquired absence of other specified parts of digestive tract; E86.0 Dehydration; E86.1 Hypovolemia; E88.09 Other disorders of plasma-protein metabolism, not elsewhere classified; C61 Malignant neoplasm of prostate; D63.8 Anemia in other chronic diseases classified elsewhere; E83.39 Other disorders of phosphorus metabolism; E87.6 Hypokalemia; J44.9 Chronic obstructive pulmonary disease, unspecified; R74.01 Elevation of levels of liver transaminase levels; E83.42 Hypomagnesemia; L89.156 Pressure-induced deep tissue damage of sacral region; S81.812A Laceration without foreign body, left lower leg, initial encounter; X58.XXXA Exposure to other specified factors, initial encounter; Y93.9 Activity, unspecified; Y92.129 Unspecified place in nursing home as the place of occurrence of the external cause; L89.150 Pressure ulcer of sacral region, unstageable; K82.8 Other specified diseases of gallbladder; I50.9 Heart failure, unspecified; M24.411 Recurrent dislocation, right shoulder; V89.2XXS Person injured in unspecified motor-vehicle accident, traffic, sequela; K22.2 Esophageal obstruction; M84.411S Pathological fracture, right shoulder, sequela; E16.2 Hypoglycemia, unspecified
CPT/HCPCS: 31720; 36415; 36569; 36600; 71045-TC; 71250-TC; 73030-TC; 74160-TC; 76700-TC; 80048-TC; 80053-TC; 80076-TC; 80202-TC; 81001; 82378; 82607-TC; 82728-TC; 82803-TC; 82962-TC; 83540-TC; 83605-TC; 83735-TC; 83880; 83921; 83935-TC; 84100-TC; 84132-TC; 84300-TC; 84425; 84439-TC; 84443-TC; 84478-TC; 84550-TC; 85025-TC; 85027-TC; 85396; 85610-TC; 85730-TC; 86301; 86850-TC; 87040-TC; 87070-TC; 87081-TC; 87086-TC; 87102-TC; 89051-TC; 92526; 92611; 94799-TC; A4216; A4223; A6213; A6253; A6254; A6403; A9563; G0378; J0153; J1171; J1815; J1938; J1956; J2185; J2405; J2470; J3373; J3374; J3475; J3480; J3490; J7030; J7040; J7042; J7050; J7060; P9016; P9047; Q9967